=== PATIENT | male | born 1990 | race Hispanic/Latino ===

== ENCOUNTER 2016-10-07 22:15 | Emergency (ER) | payer MEDICARE, MEDICAID ==
[2016-10-07 22:20] VITALS: BP 137/69; PULSE 125; RESP 15; TEMP 99.3; O2SAT 95
--- NOTE | 2016-10-07 22:51 | ED PDOC ---
HPI: General Adult Time Seen by Provider: 10/07/16 22:49 Chief Complaint (Nursing): Seizure Chief Complaint (Provider): S/P SEIZURE History Per: Patient (26 Y/O MALE UNDOMICILED NOTED TO HAVE SHAKING IN WAITING ROOM. PATIENT APPEARED COHERENT SUBSEQUENTLY AND STATES HE HAS H/O SEIZURES. STATES HE WAS DISCHARGED FROM [facility] IN [place] TODAY AND WAS UNABLE TO FIND SPACE IN [facility].) Past Medical History Reviewed: Historical Data, Nursing Documentation, Vital Signs Vital Signs: Last Vital Signs Temp 99.3 F 10/07/16 22:19 Pulse 125 H 10/07/16 22:19 Resp 15 10/07/16 22:19 BP 137/69 10/07/16 22:19 Pulse Ox 95 10/07/16 22:52 - Medical History PMH: Anxiety, Asthma, Bipolar Disorder, Depression, Diabetes (Type I and II), HTN, Hypercholesterolemia, Hyperthyroidism, Hypothyroidism Denies: Hepatitis, HIV, Chronic Kidney Disease, Schizophrenia, Seizures, Sexually Transmitted Disease - Family History Family History: States: Unknown Family Hx - Home Medications Home Medications: Ambulatory Orders Medication Instructions Recorded risperiDONE [RisperDAL Tab] 1 mg PO DAILY #21 tab 03/30/15 risperiDONE [RisperDAL Tab] 2 mg PO HS #0 tab 03/30/15 Risperidone [Risperdal] 1 mg PO DAILY #7 tab 04/09/15 Risperidone [Risperdal] 2 mg PO ASDIR #7 tab 04/09/15 - Allergies Allergies/Adverse Reactions: Allergies Allergy/AdvReac Type Severity Reaction Status Date / Time amphetamine [From Adderall] Allergy RASH Verified 10/07/16 22:46 dextroamphetamine Allergy RASH Verified 10/07/16 22:46 [From Adderall] FISH Allergy RASH Verified 10/07/16 22:46 ibuprofen [From Motrin] Allergy RASH Verified 10/07/16 22:46 lorazepam [From Ativan] Allergy RASH Verified 10/07/16 22:46 peanut Allergy RASH Verified 10/07/16 22:46 Penicillins Allergy RASH Verified 10/07/16 22:46 shellfish derived Allergy RASH Verified 10/07/16 22:46 Review of Systems ROS Statement: Except As Marked, All Systems Reviewed And Found Negative Physical Exam - Reviewed Nursing Documentation Reviewed: Yes Vital Signs Reviewed: Yes - Physical Exam Appears: Positive for: Well, Non-toxic, No Acute Distress Head Exam: Positive for: ATRAUMATIC, NORMAL INSPECTION, NORMOCEPHALIC Skin: Positive for: Normal Color, Warm, DRY Eye Exam: Positive for: EOMI, Normal appearance, PERRL ENT: Positive for: Normal ENT Inspection Neck: Positive for: Normal, Painless ROM Cardiovascular/Chest: Positive for: Regular Rate, Rhythm Respiratory: Positive for: CNT, Normal Breath Sounds Gastrointestinal/Abdominal: Positive for: Normal Exam, Bowel Sounds, Soft Back: Positive for: Normal Inspection Extremity: Positive for: Normal ROM Neurologic/Psych: Positive for: Alert, Oriented - ECG O2 Sat by Pulse Oximetry: 95 - Progress ED Course And Treament: PATIENT WOULD LIKE HIS BAGS AND WANTS TO BE DISCHARGED OUT OF ED. Disposition - Clinical Impression Clinical Impression: Seizure disorder - Patient ED Disposition Is Patient to be Admitted: No - Disposition Disposition: Left W/O Treatment Disposition Time: 22:50 Condition: FAIR
== END 2016-10-07 23:08 | disposition left against medical advice (07) ==
LOC: H.ER 22:15
DX: R56.9 Unspecified convulsions (principal)

== ENCOUNTER 2016-10-08 04:41 | Emergency (ER) | payer MEDICARE, MEDICAID | END 2016-10-08 04:48 | disposition left against medical advice (07) | LOC: H.ER 04:41 | DX: Z02.89 Encounter for other administrative examinations (principal) ==

== ENCOUNTER 2016-10-08 08:38 | Inpatient (IN) | payer MEDICARE, MEDICAID ==
[2016-10-08] MEDS ORDERED: Naloxone 0.4 mg/ml Inj (Adult) IVP STA (09:10)
[2016-10-08] MEDS ORDERED: Sodium Chloride 0.9% 1,000 ML IV STA ×2 (09:10→11:49)
--- NOTE | 2016-10-08 09:19 | ED PDOC ---
HPI: Psych/Substance Abuse Time Seen by Provider: 10/08/16 08:44 Chief Complaint (Nursing): Altered Mental Status Chief Complaint (Provider): unresponsive ED Caveat: Acuity of Condition History Per: EMS History/Exam Limitations: clinical condition Additional Complaint(s): Vaibhav Granados is a 26 year old male, with a previous medical history of hypertension, diabetes, depression, hypercholesterolemia and asthma according previous chart, who presents to the ED via EMS after he was found unresponsive on the street. HPI is limited due to patient's inability to answer. PMD: none provided Past Medical History Reviewed: Historical Data Vital Signs: Last Vital Signs Temp 97.5 F L 10/08/16 08:44 Pulse 117 H 10/08/16 09:07 Resp 22 10/08/16 09:07 BP 135/69 10/08/16 09:07 Pulse Ox 100 10/08/16 09:07 - Medical History PMH: Anxiety, Asthma, Bipolar Disorder, Depression, Diabetes (Type I and II), HTN, Hypercholesterolemia, Hyperthyroidism, Hypothyroidism Denies: Hepatitis, HIV, Chronic Kidney Disease, Schizophrenia, Seizures, Sexually Transmitted Disease - Family History Family History: States: Unknown Family Hx - Home Medications Home Medications: Ambulatory Orders Medication Instructions Recorded risperiDONE [RisperDAL Tab] 1 mg PO DAILY #21 tab 03/30/15 risperiDONE [RisperDAL Tab] 2 mg PO HS #0 tab 03/30/15 Risperidone [Risperdal] 1 mg PO DAILY #7 tab 04/09/15 Risperidone [Risperdal] 2 mg PO ASDIR #7 tab 04/09/15 - Allergies Allergies/Adverse Reactions: Allergies Allergy/AdvReac Type Severity Reaction Status Date / Time amphetamine [From Adderall] Allergy RASH Verified 10/08/16 08:44 dextroamphetamine Allergy RASH Verified 10/08/16 08:44 [From Adderall] FISH Allergy RASH Verified 10/08/16 08:44 ibuprofen [From Motrin] Allergy RASH Verified 10/08/16 08:44 lorazepam [From Ativan] Allergy RASH Verified 10/08/16 08:44 peanut Allergy RASH Verified 10/08/16 08:44 Penicillins Allergy RASH Verified 10/08/16 08:44 shellfish derived Allergy RASH Verified 10/08/16 08:44 Review of Systems Review Of Systems: ROS cannot be obtained secondary to pt's inabilty to answer questions. Physical Exam - Reviewed Nursing Documentation Reviewed: Yes Vital Signs Reviewed: Yes - Physical Exam Head Exam: Positive for: ATRAUMATIC, NORMAL INSPECTION, NORMOCEPHALIC Eye Exam: Positive for: Other (pinpoint pupils) Cardiovascular/Chest: Positive for: Regular Rate, Rhythm Respiratory: Positive for: Accessory Muscle Use, Respiratory Distress, Other ( sonorous breathing ) Neurologic/Psych: Positive for: Other (nonresponsive to sternal rub ). Negative for: Alert, Oriented - Laboratory Results Result Diagrams: 10/08/16 09:00 10/08/16 09:00 - ECG Interpretation Of ECG: ST @ 107, no ST-T changes. O2 Sat by Pulse Oximetry: 100 - Radiology X-Ray: Read By Radiologist (In situ ETT, tip of which lies approximately 3.86 cm above husam. Poor inspiration with low lung volumes, crowded bronchovascular markings and mild bibasilar atelectasis right greater than left. There may be right lower lobe atelectasis and or infiltrate and right- sided effusion. Central pulmonary vasculature is slightly increased as well likely due to the above-mentioned low lung volume technical factor.) - Critical Care Total Time (In Min): 45 Medical Decision Making Medical Decision Making: Initial Plan: * CT head w/o contrast * EKG * labs * acetaminophen * alcohol serum * urine drug screen * salicylate * urine dipstick * PTT * PT * CXR * maxifloxacin IV 400 mg * clindamycin 600 mg IV * IV NS 1,000 ml at 1,000 ml/hr * narcan 2 mg * accu-check * ventilator setting * urinalysis * reevaluation 08:44 patient arrived via EMS after being found unresponsive. Patient is unresponsive to sternal rub with pinpoint pupils and sonorous breathing. 08:46 0.4 narcan administered Oxygen saturation 84 % 08:50 1.2 narcan administered vomitus material while suctioning noted 08:52 accu-check 224 08:55 1.2 narcan administered 08:56 Intubation attempt successful breath sounds bilaterally Vitals: Oxygen: 96 % Heart rate: 132 bpm blood pressure: 109/39 09:02 Vitals: Oxygen: 100 % Heart rate: 126 bpm blood pressure: 135/69 09:41 Patient will be started on clindamycin and avelox for prophylactic aspiration. 10:11 CXR FINDINGS: LUNGS: In situ ETT, tip of which lies approximately 3.86 cm above husam. Poor inspiration with low lung volumes, crowded bronchovascular markings and mild bibasilar atelectasis right greater than left. There may be right lower lobe atelectasis and or infiltrate and right-sided effusion. Central pulmonary vasculature is slightly increased as well likely due to the above-mentioned low lung volume technical factor. PLEURA: No significant pleural effusion identified, no pneumothorax apparent. CARDIOVASCULAR: Normal. OSSEOUS STRUCTURES: No significant abnormalities. VISUALIZED UPPER ABDOMEN: Normal. OTHER FINDINGS: None. IMPRESSION: In situ ETT, tip of which lies approximately 3.86 cm above husam. Poor inspiration with low lung volumes, crowded bronchovascular markings and mild bibasilar atelectasis right greater than left. There may be right lower lobe atelectasis and or infiltrate and right-sided effusion. Central pulmonary vasculature is slightly increased as well likely due to the above-mentioned low lung volume technical factor. 11:18 CT head FINDINGS: HEMORRHAGE: No acute parenchymal, subarachnoid or extra-axial hemorrhage. BRAIN: No evidence of large acute infarct. No obvious parenchymal nor extra-axial mass or collection seen on this noncontrast study. There has been interval development of mild generalized volume loss compared the prior exam VENTRICLES: No evidence of obstructive hydrocephalus CALVARIUM: There are no acute calvarial fractures however there does appear to be mild right temporoparietal scalp swelling/ contusion old changes. . PARANASAL SINUSES: Mild mucosal thickening noted within the ethmoid air complex and right chamber frontal sinus. MASTOID AIR CELLS: Unremarkable as visualized. No inflammatory changes. OTHER FINDINGS: None. IMPRESSION: No acute intracranial hemorrhage. Interval development mild generalized volume loss. Mild right the temporoparietal scalp contusion/soft tissue swelling. 11:25 Discussed with associate attorney, Dr. Martini, for plan of ICU admission. There is an agreement for plan of admission. Scribe Attestation: Documented by Beverley Bunch, acting as a scribe for Beverley Nava MD. Provider Scribe Attestation: All medical record entries made by the Scribe were at my direction and personally dictated by me. I have reviewed the chart and agree that the record accurately reflects my personal performance of the history, physical exam, medical decision making, and the department course for this patient. I have also personally directed, reviewed, and agree with the discharge instructions and disposition. Procedures - Intubation Intubation Method: orotracheal Tube Size (cm): 7.5 Breath Sounds after Intubation: equal Intubation Complications: vomited, apparent aspiration Post Intubation Xray: Yes Disposition - Clinical Impression Clinical Impression: Opioid overdose - Patient ED Disposition Is Patient to be Admitted: Yes - Disposition Disposition Time: 11:21 Condition: CRITICAL - Pt Status Changed To: Hospital Disposition Of: Inpatient - Admit Certification Admit to Inpatient:: After my assessment, the patient will require hospitalization for at least two midnights. This is because of the severity of symptoms shown, intensity of services needed, and/or the medical risk in this patient being treated as an outpatient. - POA Present On Arrival: None
[2016-10-08 09:26] LABS: BASO % 0.2 % (0.0-2.0); EOS # 0.2 K/uL (0.0-0.7); EOS % 2.5 % (0.0-4.0); HEMATOCRIT 40.2 % (35.0-51.0); LYMPH # 1.7 K/uL (1.0-4.3); LYMPH % 25.7 % (20.0-40.0); MEAN CELL VOLUME 85.2 fl (80.0-94.0); MEAN CORPUSCULAR HEMOGLOBIN 28.5 pg (27.0-31.0); MEAN CORPUSCULAR HGB CONC 33.5 g/dL (33.0-37.0); MEAN PLATELET VOLUME 9.6 fl (7.2-11.7); MONO # 0.7 K/uL (0.0-0.8); MONO % 10.4 % (0.0-10.0); NEUT # 4.1 K/uL (1.8-7.0); NEUT % 61.2 % (50.0-75.0); NRBC % 0.1 % (0.0-0.0); RED CELL DISTRIBUTION WIDTH 13.8 % (11.5-14.5); WHITE BLOOD COUNT 6.7 K/uL (4.8-10.8)
[2016-10-08 09:38] LABS: ALB/GLOB RATIO 1.2 (1.0-2.1); ALCOHOL SERUM < 10 mg/dl (0-10); ALKALINE PHOSPHATASE 65 U/L (38-126); ALT/SGPT 27 U/L (21-72); AST/SGOT 21 U/L (17-59); BILIRUBIN,TOTAL 0.2 mg/dl (0.2-1.3); BLOOD UREA NITROGEN 14 mg/dl (9-20); CALCIUM 8.6 mg/dL (8.4-10.2); CARBON DIOXIDE 21 mmol/L (22-30); CHLORIDE 103 mmol/L (98-107); GFR AFRICAN-AMERICAN > 60; GLUCOSE,RANDOM 189 mg/dL (75-110); POTASSIUM 3.5 MMOL/L (3.6-5.0); SODIUM 141 mmol/l (132-148); TOTAL PROTEIN 7.8 G/DL (6.3-8.2)
[2016-10-08] MEDS ORDERED: Clindamycin 600 MG in Sodium Chloride 0.9% 100 ML IVPB STA (09:41)
[2016-10-08] MEDS ORDERED: levoFLOXacin 750 mg in D5W 750 MG/150 ML BAG IVPB STA (09:41)
[2016-10-08 09:43] LABS: PARTIAL THROMBOPLASTIN TIME 31.2 Seconds (25.6-37.1)
--- NOTE | 2016-10-08 10:12 | RAD ---
HISTORY: Post-intubation COMPARISON: Comparison chest 03/21/2015 FINDINGS: LUNGS: In situ ETT, tip of which lies approximately 3.86 cm above husam. Poor inspiration with low lung volumes, crowded bronchovascular markings and mild bibasilar atelectasis right greater than left. There may be right lower lobe atelectasis and or infiltrate and right-sided effusion. Central pulmonary vasculature is slightly increased as well likely due to the above-mentioned low lung volume technical factor. PLEURA: No significant pleural effusion identified, no pneumothorax apparent. CARDIOVASCULAR: Normal. OSSEOUS STRUCTURES: No significant abnormalities. VISUALIZED UPPER ABDOMEN: Normal. OTHER FINDINGS: None. IMPRESSION: In situ ETT, tip of which lies approximately 3.86 cm above husam. Poor inspiration with low lung volumes, crowded bronchovascular markings and mild bibasilar atelectasis right greater than left. There may be right lower lobe atelectasis and or infiltrate and right-sided effusion. Central pulmonary vasculature is slightly increased as well likely due to the above-mentioned low lung volume technical factor.
--- NOTE | 2016-10-08 11:19 | CT ---
PROCEDURE: CT HEAD WITHOUT CONTRAST. HISTORY: Unresponsive COMPARISON: Comparison made with prior CT scan brain 06/20/2014 . TECHNIQUE: Axial computed tomography images were obtained through the head/brain without intravenous contrast. Radiation dose: Total exam DLP = 2558.14 mGy-cm. This CT exam was performed using one or more of the following dose reduction techniques: Automated exposure control, adjustment of the mA and/or kV according to patient size, and/or use of iterative reconstruction technique. FINDINGS: HEMORRHAGE: No acute parenchymal, subarachnoid or extra-axial hemorrhage. BRAIN: No evidence of large acute infarct. No obvious parenchymal nor extra-axial mass or collection seen on this noncontrast study. There has been interval development of mild generalized volume loss compared the prior exam VENTRICLES: No evidence of obstructive hydrocephalus CALVARIUM: There are no acute calvarial fractures however there does appear to be mild right temporoparietal scalp swelling/ contusion old changes. . PARANASAL SINUSES: Mild mucosal thickening noted within the ethmoid air complex and right chamber frontal sinus. MASTOID AIR CELLS: Unremarkable as visualized. No inflammatory changes. OTHER FINDINGS: None. IMPRESSION: No acute intracranial hemorrhage. Interval development mild generalized volume loss. Mild right the temporoparietal scalp contusion/soft tissue swelling.
[2016-10-08 12:05] LABS: RBC URINE 2 /hpf (0-3); URINE BILIRUBIN NEGATIVE (NEGATIVE); URINE BLOOD NEGATIVE (NEGATIVE); URINE COLOR YELLOW (YELLOW); URINE GLUCOSE (UA) NEG (Normal); URINE KETONE TRACE mg/dL (NEGATIVE); URINE LEUKOCYTE ESTERASE NEG Leu/uL (Negative); URINE PROTEIN 100 mg/dL (NEGATIVE); URINE UROBILINOGEN 0.2-1.0 mg/dL (0.2-1.0); WBC URINE 2 /hpf (0-5)
[2016-10-08] MEDS ORDERED: Pneumococcal 23-Valent Vaccine IM ONE (13:38)
--- NOTE | 2016-10-08 13:53 | CARD ---
APPROVED REPORT EKG Measurement Heart [id number] <Conclusion> Sinus tachycardia Otherwise normal ECG
--- NOTE | 2016-10-08 13:56 | CP.PCM.CON ---
History of Present Illness - History of Present Illness History of Present Illness: 26yo M. PMHx Anxiety, Asthma, Bipolar Disorder, Depression, Diabetes, HTN, Hypercholesterolemia, Hyperthyroidism, Hypothyroidism, Schizophrenia, drug abuse (THC, PCP, benzo). p/w acute respiratory failure from drug overdose, intubated in ED. Review of Systems - Review of Systems Systems not reviewed;Unavailable: Altered Mental Status Past Patient History - Infectious Disease Hx of Infectious Diseases: None - Tetanus Immunizations Tetanus Immunization: Unknown - Past Medical History & Family History Past Medical History?: Yes - Past Social History Smoking Status: Unknown If Ever Smoked - CARDIAC Hx Hypercholesterolemia: Yes Hx Hypertension: Yes - PULMONARY Hx Asthma: Yes - NEUROLOGICAL Hx Seizures: No - HEENT Hx Deafness: Yes Other/Comment: Hx nearsighted - RENAL Hx Chronic Kidney Disease: No - ENDOCRINE/METABOLIC Hx Hyperthyroidism: Yes Hx Hypothyroidism: Yes - HEMATOLOGICAL/ONCOLOGICAL Hx Human Immunodeficiency Virus (HIV): No - INTEGUMENTARY Hx Dermatological Problems: No - MUSCULOSKELETAL/RHEUMATOLOGICAL Hx Musculoskeletal Disorders: No Hx Falls: No - GASTROINTESTINAL Hx Gastrointestinal Disorders: No - GENITOURINARY/GYNECOLOGICAL Hx Sexually Transmitted Disorders: No - PSYCHIATRIC Hx Anxiety: Yes Hx Bipolar Disorder: Yes Hx Depression: Yes Hx Schizophrenia: No Hx Substance Use: Yes - SURGICAL HISTORY Hx Surgeries: No - ANESTHESIA Hx Anesthesia: No Meds Allergies/Adverse Reactions: Allergies Allergy/AdvReac Type Severity Reaction Status Date / Time amphetamine [From Adderall] Allergy RASH Verified 10/08/16 08:44 dextroamphetamine Allergy RASH Verified 10/08/16 08:44 [From Adderall] FISH Allergy RASH Verified 10/08/16 08:44 ibuprofen [From Motrin] Allergy RASH Verified 10/08/16 08:44 lorazepam [From Ativan] Allergy RASH Verified 10/08/16 08:44 peanut Allergy RASH Verified 10/08/16 08:44 Penicillins Allergy RASH Verified 10/08/16 08:44 shellfish derived Allergy RASH Verified 10/08/16 08:44 - Medications Medications: Current Medications Enoxaparin Sodium (Lovenox) 40 mg SC DAILY AGUS PRN Reason: Protocol Sodium Chloride (Sodium Chloride 0.9%) 1,000 mls @ 125 mls/hr IV .Q8H STA Stop: 10/08/16 19:48 Physical Exam - Head Exam Head Exam: ATRAUMATIC, NORMAL INSPECTION, NORMOCEPHALIC - Eye Exam Eye Exam: EOMI, Normal appearance, PERRL - Respiratory Exam Respiratory Exam: Decreased Breath Sounds, NORMAL BREATHING PATTERN - Cardiovascular Exam Cardiovascular Exam: REGULAR RHYTHM - GI/Abdominal Exam GI & Abdominal Exam: Normal Bowel Sounds, Soft. absent: Tenderness - Neurological Exam Neurological exam: Altered - Psychiatric Exam Additional comments: obtunded Results - Vital Signs Recent Vital Signs: Last Vital Signs Temp 97.7 F 10/08/16 12:50 Pulse 102 H 10/08/16 12:50 Resp 25 H 10/08/16 13:12 BP 124/70 10/08/16 12:50 Pulse Ox 100 10/08/16 12:50 - Labs Result Diagrams: 10/08/16 09:00 10/08/16 09:00 Assessment & Plan (1) Drug intoxication Assessment and Plan: 26yo M. PMHx Anxiety, Asthma, Bipolar Disorder, Depression, Diabetes, HTN, Hypercholesterolemia, Hyperthyroidism, Hypothyroidism, Schizophrenia, drug abuse (THC, PCP, benzo). p/w acute respiratory failure from drug overdose, intubated in ED. Neuro: obtunded from benzodiazepine overdose, narcan reversal did not work, urine opioid negative. Pulm: acute respiratory failure secondary to opioid overdose. now on PRVC. CV: hemodynamically stable Hem: no acute issues Renal: maintenance fluid, NS@125 Endo: hyperthyroidism, check TSH/Free T4. ?Diabetes, check A1C. GI: NPO ID: empiric coverage for aspiration, clindamycin. DVT proph - lovenox GI proph - not currently indicated corea for strict I/O's during acute illness Code status - full code Critical Care Time spent 35 minutes The documented time is cumulative and includes review of patient data/exams/labs /chart review and examination of the patient on rounds and throughout the day; time is exclusive of any procedures or teaching time. Status: Acute
[2016-10-08] MEDS: Clindamycin 600 MG in Sodium Chloride 0.9% 100 ML IVPB SCH (16:14)
[2016-10-08] MEDS: Insulin Lispro (humaLOG) 100 Units/ml Inj SC SCH ×2 (16:15→21:16)
[2016-10-08] MEDS: Enoxaparin 40 mg Syringe SC SCH (16:15)
[2016-10-08] MEDS ORDERED: Albuterol-Ipratrop 3 mg / 0.5 (3 ml) UD INH PRN (18:35)
[2016-10-08] MEDS: guaiFENesin 600 mg ER Tab PO SCH (21:56)
[2016-10-09] MEDS: Clindamycin 600 MG in Sodium Chloride 0.9% 100 ML IVPB SCH ×3 (00:18→17:35)
[2016-10-09 05:15] LABS: ABG ALLEN TEST YES; ARTERIAL BLOOD GAS HCO3 27.5 mmol/L (21-28); ARTERIAL BLOOD GAS MODE CPAP+PS; ARTERIAL BLOOD GAS O2 CAPACITY 18.5 mL/dL (16-24); ARTERIAL BLOOD GAS O2 CONTENT 18.4 ML/dL (15-23); ARTERIAL BLOOD GAS PH 7.44 (7.35-7.45); ARTERIAL BLOOD GAS PO2 113 mm/Hg (80-100); ATERIAL BLOOD GAS PEEP 8; CARBOXYHEMOGLOBIN 1.9 % (0.5-1.5); HHB 0.4 % (0.0-5.0); METHEMOGLOBIN 1.7 % (0.0-3.0)
[2016-10-09] MEDS: Insulin Lispro (humaLOG) 100 Units/ml Inj SC SCH ×4 (05:19→21:36)
[2016-10-09 07:13] LABS: ALB/GLOB RATIO 1.1 (1.0-2.1); ALKALINE PHOSPHATASE 62 U/L (38-126); ALT/SGPT 27 U/L (21-72); AST/SGOT 19 U/L (17-59); BILIRUBIN,TOTAL 0.6 mg/dl (0.2-1.3); BLOOD UREA NITROGEN 7 mg/dl (9-20); CALCIUM 8.2 mg/dL (8.4-10.2); CARBON DIOXIDE 24 mmol/L (22-30); CHLORIDE 104 mmol/L (98-107); GFR AFRICAN-AMERICAN > 60; GLUCOSE,RANDOM 99 mg/dL (75-110); POTASSIUM 4.1 MMOL/L (3.6-5.0); SODIUM 139 mmol/l (132-148); TOTAL PROTEIN 7.1 G/DL (6.3-8.2)
[2016-10-09 07:16] LABS: HEMATOCRIT 38.6 % (35.0-51.0); MEAN CELL VOLUME 85.7 fl (80.0-94.0); MEAN CORPUSCULAR HEMOGLOBIN 28.2 pg (27.0-31.0); MEAN CORPUSCULAR HGB CONC 32.9 g/dL (33.0-37.0); RED CELL DISTRIBUTION WIDTH 13.7 % (11.5-14.5); WHITE BLOOD COUNT 12.2 K/uL (4.8-10.8)
[2016-10-09] MEDS: guaiFENesin 600 mg ER Tab PO SCH ×2 (10:30→20:15)
[2016-10-09] MEDS: Enoxaparin 40 mg Syringe SC SCH (10:30)
--- NOTE | 2016-10-09 10:44 | RAD ---
HISTORY: repeat x-ray COMPARISON: Comparison made with prior chest radiograph 10/09/2016 at 07:38 hours FINDINGS: LUNGS: Interval removal ETT Poor inspiration with low lung volumes, crowded bronchovascular markings and mild bibasilar atelectasis right greater than left. The possibility of right lower lobe infiltrate to be excluded. Persistent slight increased central pulmonary vasculature ; underlying mild pulmonary edema not excluded Questionable small right-sided effusion PLEURA: As above. No pneumothorax apparent. CARDIOVASCULAR: Normal. OSSEOUS STRUCTURES: No significant abnormalities. VISUALIZED UPPER ABDOMEN: Normal. OTHER FINDINGS: None. IMPRESSION: Poor inspiration with low lung volumes, crowded bronchovascular markings and mild bibasilar atelectasis right greater than left. The possibility of right lower lobe infiltrate to be excluded. Persistent slight increased central pulmonary vasculature ; underlying mild pulmonary edema not excluded. Questionable small right-sided effusion
--- NOTE | 2016-10-09 11:04 | RAD ---
HISTORY: on vent COMPARISON: Comparison made with prior chest radiograph 10/08/2016 at 9:56 a.m. FINDINGS: LUNGS: In situ ETT, tip of which lies in the 3.34 cm above husam. . Mild central pulmonary vascular congestive changes with bilateral lower lobe atelectasis and or infiltrates. Suspect right-sided effusion. PLEURA: No significant pleural effusion identified, no pneumothorax apparent. CARDIOVASCULAR: Normal. OSSEOUS STRUCTURES: No significant abnormalities. VISUALIZED UPPER ABDOMEN: Normal. OTHER FINDINGS: None. IMPRESSION: In situ ETT as above. Mild central pulmonary vascular congestive changes with bilateral lower lobe atelectasis and or infiltrates. Suspect right-sided effusion.
--- NOTE | 2016-10-09 11:07 | CP.CCUPN ---
CCU Subjective - Physician Review Events Since Last Encounter (Free Text): 10/09/16 11:05 patient was awake and alert and self-extubated this morning. He is breathing well on ventimask currently. CCU Objective - Vital Signs / Intake & Output Vital Signs (Last 4 hours): Vital Signs Temp Pulse Resp BP Pulse Ox 10/09/16 08:00 99.6 F 104 H 22 122/58 L 103 H Intake and Output (Last 8hrs): Intake & Output 10/08/16 10/09/16 10/09/16 22:59 06:59 14:59 Intake Total 1025 975 Output Total 500 1300 Balance 525 -325 Intake: IV 925 875 Intake, Piggyback 100 100 Output: Urine 500 1300 Urethral (Corea) 500 1300 - Physical Exam Head: Positive for: Atraumatic, Normocephalic Pupils: Positive for: PERRL Extroacular Muscles: Positive for: EOMI Mouth: Positive for: Moist Mucous Membranes Neck: Positive for: Normal Range of Motion Respiratory/Chest: Positive for: Rhonchi Cardiovascular: Positive for: Regular Rate and Rhythm, Normal S1, S2 Abdomen: Positive for: Normal Bowel Sounds. Negative for: Tenderness, Distention Neurological: Positive for: GCS=15, CN II-XII Intact Psychiatric: Positive for: Alert - Medications Active Medications: Active Medications Generic Name Dose Route Start Last Admin Trade Name Freq PRN Reason Stop Dose Admin Albuterol/Ipratropium 3 ml 10/08/16 18:35 Duoneb 3 Mg/0.5 Mg (3 Ml) Ud INH RQ4 PRN Shortness of Breath Enoxaparin Sodium 40 mg 10/08/16 14:00 10/09/16 10:30 Lovenox SC 40 mg DAILY AGUS Administration Protocol Guaifenesin 1,200 mg 10/08/16 21:00 10/09/16 10:30 Mucinex La PO Not Given Q12 AGUS Haloperidol Lactate 2 mg 10/09/16 00:22 10/09/16 00:34 Haldol IVP 2 mg Q6 PRN Administration Agitation Clindamycin Phosphate 600 mg/ 104 mls @ 104 mls/hr 10/08/16 17:00 10/09/16 10 :28 Sodium Chloride IVPB 104 mls/hr Q8 AGUS Administration Insulin Human Lispro 0 units 10/08/16 15:30 10/09/16 09:30 Humalog SC Not Given Q6H [facility] Protocol - Patient Studies Lab Studies: Lab Studies 10/09/16 10/09/16 10/09/16 Range/Units 05:30 05:30 05:08 WBC 12.2 H D (4.8-10.8) K/uL RBC 4.50 (4.40-5.90) Mil/uL Hgb 12.7 (12.0-18.0) g/dL Hct 38.6 (35.0-51.0) % MCV 85.7 (80.0-94.0) fl MCH 28.2 (27.0-31.0) pg MCHC 32.9 L (33.0-37.0) g/dL RDW 13.7 (11.5-14.5) % Plt Count 160 (130-400) K/uL pCO2 41 (35-45) mm/Hg pO2 113 H (80-100) mm/Hg HCO3 27.5 (21-28) mmol/L ABG pH 7.44 (7.35-7.45) ABG Total CO2 29.1 H (22-28) mmol/L ABG O2 Saturation 99.6 H (95-98) % ABG O2 Content 18.4 (15-23) ML/dL ABG Base Excess 3.3 H (-2.0-3.0) mmol/L ABG Hemoglobin 13.5 (11.7-17.4) g/dL ABG Carboxyhemoglobin 1.9 H (0.5-1.5) % POC ABG HHb (Measured) 0.4 (0.0-5.0) % ABG Methemoglobin 1.7 (0.0-3.0) % ABG O2 Capacity 18.5 (16-24) mL/dL Darrian Test Yes A-a O2 Difference 121.0 mm/Hg Hgb O2 Saturation 96.0 (95.0-98.0) % Vent Mode Cpap+ps FiO2 40.0 % PEEP 8 Pressure Support 10 Sodium 139 (132-148) mmol/l Potassium 4.1 (3.6-5.0) MMOL/L Chloride 104 (98-107) mmol/L Carbon Dioxide 24 (22-30) mmol/L Anion Gap 14 (10-20) BUN 7 L (9-20) mg/dl Creatinine 0.7 L (0.8-1.5) mg/dL Est GFR ( Amer) > 60 Est GFR (Non-Af Amer) > 60 POC Glucose (mg/dL) (65-110) mg/dL Random Glucose 99 (75-110) mg/dL Calcium 8.2 L (8.4-10.2) mg/dL Total Bilirubin 0.6 (0.2-1.3) mg/dl AST 19 (17-59) U/L ALT 27 (21-72) U/L Alkaline Phosphatase 62 (38-126) U/L Total Protein 7.1 (6.3-8.2) G/DL Albumin 3.6 (3.5-5.0) g/dL Globulin 3.4 (2.2-3.9) gm/dL Albumin/Globulin Ratio 1.1 (1.0-2.1) 10/09/16 10/08/16 10/08/16 Range/Units 04:32 20:58 16:09 WBC (4.8-10.8) K/uL RBC (4.40-5.90) Mil/uL Hgb (12.0-18.0) g/dL Hct (35.0-51.0) % MCV (80.0-94.0) fl MCH (27.0-31.0) pg MCHC (33.0-37.0) g/dL RDW (11.5-14.5) % Plt Count (130-400) K/uL pCO2 (35-45) mm/Hg pO2 (80-100) mm/Hg HCO3 (21-28) mmol/L ABG pH (7.35-7.45) ABG Total CO2 (22-28) mmol/L ABG O2 Saturation (95-98) % ABG O2 Content (15-23) ML/dL ABG Base Excess (-2.0-3.0) mmol/L ABG Hemoglobin (11.7-17.4) g/dL ABG Carboxyhemoglobin (0.5-1.5) % POC ABG HHb (Measured) (0.0-5.0) % ABG Methemoglobin (0.0-3.0) % ABG O2 Capacity (16-24) mL/dL Darrian Test A-a O2 Difference mm/Hg Hgb O2 Saturation (95.0-98.0) % Vent Mode FiO2 % PEEP Pressure Support Sodium (132-148) mmol/l Potassium (3.6-5.0) MMOL/L Chloride (98-107) mmol/L Carbon Dioxide (22-30) mmol/L Anion Gap (10-20) BUN (9-20) mg/dl Creatinine (0.8-1.5) mg/dL Est GFR ( Amer) Est GFR (Non-Af Amer) POC Glucose (mg/dL) 94 96 102 (65-110) mg/dL Random Glucose (75-110) mg/dL Calcium (8.4-10.2) mg/dL Total Bilirubin (0.2-1.3) mg/dl AST (17-59) U/L ALT (21-72) U/L Alkaline Phosphatase (38-126) U/L Total Protein (6.3-8.2) G/DL Albumin (3.5-5.0) g/dL Globulin (2.2-3.9) gm/dL Albumin/Globulin Ratio (1.0-2.1) Laboratory Results - last 24 hr 10/08/16 10/08/16 10/09/16 16:09 20:58 04:32 WBC RBC Hgb Hct MCV MCH MCHC RDW Plt Count pCO2 pO2 HCO3 ABG pH ABG Total CO2 ABG O2 Saturation ABG O2 Content ABG Base Excess ABG Hemoglobin ABG Carboxyhemoglobin POC ABG HHb (Measured) ABG Methemoglobin ABG O2 Capacity Darrian Test A-a O2 Difference Hgb O2 Saturation Vent Mode FiO2 PEEP Pressure Support Sodium Potassium Chloride Carbon Dioxide Anion Gap BUN Creatinine Est GFR ( Amer) Est GFR (Non-Af Amer) POC Glucose (mg/dL) 102 96 94 Random Glucose Calcium Total Bilirubin AST ALT Alkaline Phosphatase Total Protein Albumin Globulin Albumin/Globulin Ratio 10/09/16 10/09/16 10/09/16 05:08 05:30 05:30 WBC 12.2 H D RBC 4.50 Hgb 12.7 Hct 38.6 MCV 85.7 MCH 28.2 MCHC 32.9 L RDW 13.7 Plt Count 160 pCO2 41 pO2 113 H HCO3 27.5 ABG pH 7.44 ABG Total CO2 29.1 H ABG O2 Saturation 99.6 H ABG O2 Content 18.4 ABG Base Excess 3.3 H ABG Hemoglobin 13.5 ABG Carboxyhemoglobin 1.9 H POC ABG HHb (Measured) 0.4 ABG Methemoglobin 1.7 ABG O2 Capacity 18.5 Darrian Test Yes A-a O2 Difference 121.0 Hgb O2 Saturation 96.0 Vent Mode Cpap+ps FiO2 40.0 PEEP 8 Pressure Support 10 Sodium 139 Potassium 4.1 Chloride 104 Carbon Dioxide 24 Anion Gap 14 BUN 7 L Creatinine 0.7 L Est GFR ( Amer) > 60 Est GFR (Non-Af Amer) > 60 POC Glucose (mg/dL) Random Glucose 99 Calcium 8.2 L Total Bilirubin 0.6 AST 19 ALT 27 Alkaline Phosphatase 62 Total Protein 7.1 Albumin 3.6 Globulin 3.4 Albumin/Globulin Ratio 1.1 Fingerstick Blood Sugar Results: 95 Review of Systems - Review of Systems All systems: reviewed and no additional remarkable complaints except - EENT Nose/Mouth/Throat: Hoarsness Assessment/Plan (1) Drug intoxication Assessment and plan: 26yo M. PMHx Anxiety, Asthma, Bipolar Disorder, Depression, Diabetes, HTN, Hypercholesterolemia, Hypothyroidism, Schizophrenia, drug abuse (THC, PCP, benzo ). p/w acute respiratory failure from drug overdose, intubated in ED. Neuro: obtunded from benzodiazepine overdose, narcan reversal did not work, urine opioid negative. Pulm: acute respiratory failure resolved. Self-extubated, breathing well on VM. Duonebs q6h, guaifenessin bid for aspiration pneumonia. CV: hemodynamically stable Hem: no acute issues Renal: maintenance fluid, NS@125 Endo: hypothyroidism, will start levothyroxine. ?Diabetes, awating A1C. GI: NPO, s/s eval. ID: sepsis for aspiration pneumonia, clindamycin. DVT proph - lovenox GI proph - not currently indicated corea for strict I/O's during acute illness Code status - full code Critical Care Time spent 35 minutes The documented time is cumulative and includes review of patient data/exams/labs /chart review and examination of the patient on rounds and throughout the day; time is exclusive of any procedures or teaching time. Current Visit: No Status: Acute
[2016-10-09] MEDS ORDERED: Sodium Chloride 0.9% 1,000 ML IV SCH (19:30)
--- NOTE | 2016-10-09 21:15 | HP ---
CHIEF COMPLAINT: Found unresponsive. HISTORY OF PRESENT ILLNESS: This is a 26-year-old male with known case of anxiety, bipolar disorder, bronchial asthma, hypertension, diabetes, thyroid disorder and drug abuse, who was found unresponsiv e and was brought to Emergency Room and was found in respiratory distress and was intubated and was p laced on ventilator and was admitted to intensive care unit. The patient currently remains in intens whit care unit on mechanical ventilation and is not able to provide informative history or review of s ystems. PAST MEDICAL HISTORY: Significant for hypertension, diabetes mellitus, thyroid disorder, bipolar dis order, asthma, anxiety, schizophrenia and substance abuse. PAST SURGICAL HISTORY: Nonremarkable. PERSONAL HISTORY: The patient has history of substance abuse. MEDICATIONS: The patient is not on any medications. ALLERGIES: THE PATIENT IS ALLERGIC TO AMPHETAMINES, FISH, IBUPROFEN. FAMILY HISTORY: Noncontributory. PHYSICAL EXAMINATION: GENERAL: Well-built, overweight 26-year-old male, orally intubated on mechanical ventilation. Brianna ating current vent setting without any distress. VITAL SIGNS: Temperature afebrile, pulse 100, respirations 17, blood pressure 107/67, saturation 96% . HEENT: Pupils reacting to light. HEART: S1, S2 normal, regular. NECK: No JVD, no thyromegaly, no lymphadenopathy. HEART: S1, S2 normal, regular. No significant murmur, gallop or rub is heard. LUNGS: Shows good bilateral air exchange. No rales or rhonchi, some transmitted sounds. ABDOMEN: Soft, nontender, no organomegaly, no fluid. Bowel sounds are plus. EXTREMITIES: No edema, no calf swelling, no tenderness, no acute ischemia. CENTRAL NERVOUS SYSTEM: The patient is not able to be examined as currently the patient is on mechanical ventilation and not conversant. DIAGNOSTIC DATA: Available diagnostic data reviewed. WBC 12.2, hemoglobin 12.7, hematocrit 38.6, pl atelet 160. A pO2 of 41, pCO2 of 113, bicarbonate 27.5, pH 7.44, saturation is 99.6. Sodium 139, pot assium 4.1, chloride 104, bicarb 24, BUN 7, creatinine 0.7. SMA-12 is unremarkable. Toxicology was positive for benzodiazepines. Chest x-ray was clear. ET tube in acceptable position. CAT scan of h ead did not reveal any acute MATHEMATICIAN event. Cardiac monitoring does not reveal significant arrhythmias. ADMITTING IMPRESSION: Altered mental status, drug overdose, history of hypertension, diabetes, thyro id disorder, bipolar disorder, schizophrenia. PLAN: As ordered. Case and plan discussed with ICU. Kiko Colmenares MD cc: [id number] TT: 10/09/2016 21:15:13 ln
[2016-10-10] MEDS: Clindamycin 600 MG in Sodium Chloride 0.9% 100 ML IVPB SCH ×3 (01:00→16:01)
[2016-10-10] MEDS: Insulin Lispro (humaLOG) 100 Units/ml Inj SC SCH ×4 (04:35→22:00)
[2016-10-10 05:01] LABS: HEMATOCRIT 38.6 % (35.0-51.0); MEAN CELL VOLUME 84.8 fl (80.0-94.0); MEAN CORPUSCULAR HEMOGLOBIN 28.3 pg (27.0-31.0); MEAN CORPUSCULAR HGB CONC 33.4 g/dL (33.0-37.0); WHITE BLOOD COUNT 9.5 K/uL (4.8-10.8)
[2016-10-10 05:11] LABS: ALKALINE PHOSPHATASE 64 U/L (38-126); ALT/SGPT 33 U/L (21-72); AST/SGOT 17 U/L (17-59); BILIRUBIN,TOTAL 0.4 mg/dl (0.2-1.3); BLOOD UREA NITROGEN 10 mg/dl (9-20); CARBON DIOXIDE 24 mmol/L (22-30); CHLORIDE 105 mmol/L (98-107); GFR AFRICAN-AMERICAN > 60; GLUCOSE,RANDOM 98 mg/dL (75-110); POTASSIUM 4.2 MMOL/L (3.6-5.0); SODIUM 139 mmol/l (132-148); TOTAL PROTEIN 7.7 G/DL (6.3-8.2)
--- NOTE | 2016-10-10 07:15 | CP.CCUPN ---
CCU Subjective - Physician Review Events Since Last Encounter (Free Text): 10/10/16 15:30 The Patient was seen and examined at the bedside with the ICU team. Management issues were discussed and formulated. 26 Y/O M. PMHx HTN, Hypercholesterolemia, Anxiety, Asthma, Bipolar Disorder, Depression, Diabetes, Hypothyroidism, Schizophrenia, drug abuse (THC, PCP, benzo ). p/w acute respiratory failure from drug overdose, intubated in ED. Acute respiratory failure self extubated, remains in ICU to monitor respiratory status closely More awake, and interactive today Comfortable, NAD Saturating well on nasal cannula Tolerating PO diet. AFebrile Patient stable for transfe out of ICU On IV Antibiotics with Clindamycin CCU Objective - Vital Signs / Intake & Output Vital Signs (Last 4 hours): Vital Signs Temp Pulse Resp BP Pulse Ox 10/10/16 06:00 99 H 27 H 93/60 L 95 10/10/16 04:00 98.8 F 95 H 18 101/61 97 Intake and Output (Last 8hrs): Intake & Output 10/09/16 10/10/16 10/10/16 22:59 06:59 14:59 Intake Total 465 865 Output Total 1950 1550 Balance -1485 -685 Weight 337 lb Intake: IV 225 525 Intake, Piggyback 100 Oral 240 240 Output: Urine 1950 1550 Urine, Voided 1950 1550 Other: # Voids Urine, Voided 1 - Physical Exam Head: Positive for: Atraumatic, Normocephalic Pupils: Positive for: PERRL Extroacular Muscles: Positive for: EOMI Mouth: Positive for: Moist Mucous Membranes Neck: Positive for: Normal Range of Motion Respiratory/Chest: Positive for: Rhonchi Cardiovascular: Positive for: Regular Rate and Rhythm, Normal S1, S2 Abdomen: Positive for: Normal Bowel Sounds. Negative for: Tenderness, Distention Neurological: Positive for: GCS=15, CN II-XII Intact Psychiatric: Positive for: Alert, Oriented x 3 - Medications Active Medications: Active Medications Generic Name Dose Route Start Last Admin Trade Name Freq PRN Reason Stop Dose Admin Albuterol/Ipratropium 3 ml 10/08/16 18:35 Duoneb 3 Mg/0.5 Mg (3 Ml) Ud INH RQ4 PRN Shortness of Breath Enoxaparin Sodium 40 mg 10/08/16 14:00 10/09/16 10:30 Lovenox SC 40 mg DAILY AGUS Administration Protocol Guaifenesin 1,200 mg 10/08/16 21:00 10/09/16 20:15 Mucinex La PO 1,200 mg Q12 AGUS Administration Haloperidol Lactate 2 mg 10/09/16 00:22 10/09/16 00:34 Haldol IVP 2 mg Q6 PRN Administration Agitation Clindamycin Phosphate 600 mg/ 104 mls @ 104 mls/hr 10/08/16 17:00 10/10/16 01 :00 Sodium Chloride IVPB 104 mls/hr Q8 AGUS Administration Sodium Chloride 1,000 mls @ 75 mls/hr 10/09/16 19:30 10/09/16 19:37 Sodium Chloride 0.9% IV 10/10/16 08:49 75 mls/hr .[id number] AGUS Administration Insulin Human Lispro 0 units 10/08/16 15:30 10/10/16 04:35 Humalog SC Not Given Q6H AGUS Protocol - Patient Studies Lab Studies: Lab Studies 10/10/16 10/10/16 10/10/16 Range/Units 04:31 04:10 04:10 WBC 9.5 (4.8-10.8) K/uL RBC 4.56 (4.40-5.90) Mil/uL Hgb 12.9 (12.0-18.0) g/dL Hct 38.6 (35.0-51.0) % MCV 84.8 (80.0-94.0) fl MCH 28.3 (27.0-31.0) pg MCHC 33.4 (33.0-37.0) g/dL RDW 14.0 (11.5-14.5) % Plt Count 165 (130-400) K/uL Sodium 139 (132-148) mmol/l Potassium 4.2 (3.6-5.0) MMOL/L Chloride 105 (98-107) mmol/L Carbon Dioxide 24 (22-30) mmol/L Anion Gap 14 (10-20) BUN 10 (9-20) mg/dl Creatinine 0.8 (0.8-1.5) mg/dL Est GFR ( Amer) > 60 Est GFR (Non-Af Amer) > 60 POC Glucose (mg/dL) 93 (65-110) mg/dL Random Glucose 98 (75-110) mg/dL Calcium 9.0 (8.4-10.2) mg/dL Total Bilirubin 0.4 (0.2-1.3) mg/dl AST 17 (17-59) U/L ALT 33 (21-72) U/L Alkaline Phosphatase 64 (38-126) U/L Total Protein 7.7 (6.3-8.2) G/DL Albumin 3.9 (3.5-5.0) g/dL Globulin 3.9 (2.2-3.9) gm/dL Albumin/Globulin Ratio 1.0 (1.0-2.1) 10/09/16 10/09/16 10/09/16 Range/Units 20:17 17:31 05:30 WBC (4.8-10.8) K/uL RBC (4.40-5.90) Mil/uL Hgb (12.0-18.0) g/dL Hct (35.0-51.0) % MCV (80.0-94.0) fl MCH (27.0-31.0) pg MCHC (33.0-37.0) g/dL RDW (11.5-14.5) % Plt Count (130-400) K/uL Sodium 139 (132-148) mmol/l Potassium 4.1 (3.6-5.0) MMOL/L Chloride 104 (98-107) mmol/L Carbon Dioxide 24 (22-30) mmol/L Anion Gap 14 (10-20) BUN 7 L (9-20) mg/dl Creatinine 0.7 L (0.8-1.5) mg/dL Est GFR ( Amer) > 60 Est GFR (Non-Af Amer) > 60 POC Glucose (mg/dL) 90 147 H (65-110) mg/dL Random Glucose 99 (75-110) mg/dL Calcium 8.2 L (8.4-10.2) mg/dL Total Bilirubin 0.6 (0.2-1.3) mg/dl AST 19 (17-59) U/L ALT 27 (21-72) U/L Alkaline Phosphatase 62 (38-126) U/L Total Protein 7.1 (6.3-8.2) G/DL Albumin 3.6 (3.5-5.0) g/dL Globulin 3.4 (2.2-3.9) gm/dL Albumin/Globulin Ratio 1.1 (1.0-2.1) 10/09/16 Range/Units 05:30 WBC 12.2 H D (4.8-10.8) K/uL RBC 4.50 (4.40-5.90) Mil/uL Hgb 12.7 (12.0-18.0) g/dL Hct 38.6 (35.0-51.0) % MCV 85.7 (80.0-94.0) fl MCH 28.2 (27.0-31.0) pg MCHC 32.9 L (33.0-37.0) g/dL RDW 13.7 (11.5-14.5) % Plt Count 160 (130-400) K/uL Sodium (132-148) mmol/l Potassium (3.6-5.0) MMOL/L Chloride (98-107) mmol/L Carbon Dioxide (22-30) mmol/L Anion Gap (10-20) BUN (9-20) mg/dl Creatinine (0.8-1.5) mg/dL Est GFR ( Amer) Est GFR (Non-Af Amer) POC Glucose (mg/dL) (65-110) mg/dL Random Glucose (75-110) mg/dL Calcium (8.4-10.2) mg/dL Total Bilirubin (0.2-1.3) mg/dl AST (17-59) U/L ALT (21-72) U/L Alkaline Phosphatase (38-126) U/L Total Protein (6.3-8.2) G/DL Albumin (3.5-5.0) g/dL Globulin (2.2-3.9) gm/dL Albumin/Globulin Ratio (1.0-2.1) Laboratory Results - last 24 hr 10/09/16 10/09/16 10/09/16 05:30 05:30 17:31 WBC 12.2 H D RBC 4.50 Hgb 12.7 Hct 38.6 MCV 85.7 MCH 28.2 MCHC 32.9 L RDW 13.7 Plt Count 160 Sodium 139 Potassium 4.1 Chloride 104 Carbon Dioxide 24 Anion Gap 14 BUN 7 L Creatinine 0.7 L Est GFR ( Amer) > 60 Est GFR (Non-Af Amer) > 60 POC Glucose (mg/dL) 147 H Random Glucose 99 Calcium 8.2 L Total Bilirubin 0.6 AST 19 ALT 27 Alkaline Phosphatase 62 Total Protein 7.1 Albumin 3.6 Globulin 3.4 Albumin/Globulin Ratio 1.1 10/09/16 10/10/16 10/10/16 20:17 04:10 04:10 WBC 9.5 RBC 4.56 Hgb 12.9 Hct 38.6 MCV 84.8 MCH 28.3 MCHC 33.4 RDW 14.0 Plt Count 165 Sodium 139 Potassium 4.2 Chloride 105 Carbon Dioxide 24 Anion Gap 14 BUN 10 Creatinine 0.8 Est GFR ( Amer) > 60 Est GFR (Non-Af Amer) > 60 POC Glucose (mg/dL) 90 Random Glucose 98 Calcium 9.0 Total Bilirubin 0.4 AST 17 ALT 33 Alkaline Phosphatase 64 Total Protein 7.7 Albumin 3.9 Globulin 3.9 Albumin/Globulin Ratio 1.0 10/10/16 04:31 WBC RBC Hgb Hct MCV MCH MCHC RDW Plt Count Sodium Potassium Chloride Carbon Dioxide Anion Gap BUN Creatinine Est GFR ( Amer) Est GFR (Non-Af Amer) POC Glucose (mg/dL) 93 Random Glucose Calcium Total Bilirubin AST ALT Alkaline Phosphatase Total Protein Albumin Globulin Albumin/Globulin Ratio Fingerstick Blood Sugar Results: 93 Review of Systems - Constitutional Constitutional: absent: Fever, Sweats - Cardiovascular Cardiovascular: absent: Chest Pain, Chest Pain at Rest, Chest Pain with Activity , Claudication, Diaphoresis - Respiratory Respiratory: absent: Cough, Dyspnea, Hemoptysis, Dyspnea on Exertion, Wheezing Critical Care Progress Note - Nutrition Nutrition: Nutrition Category Date Time Status Dysphagia/Modified Consistency Diet [DIET] Diets 10/10/16 Breakfast Active Assessment/Plan (1) Altered mental state Current Visit: No Status: Acute Comment: Resolved, more awake and interactive Extubated (2) Asthma Current Visit: No Status: Acute Comment: asymptomatic Albuterol q 4hrs prn for wheezing and SOB (3) Bipolar 1 disorder Current Visit: No Status: Acute Comment: managed by Psych-on Haloperidol Lactate Would place pt on 1:1 supervision now since he is awake and alert (4) Drug abuse Current Visit: No Status: Acute (5) Schizo-affective psychosis Current Visit: No Status: Acute Priority: High Comment: psyche follow up (6) Schizophrenia Current Visit: No Status: Acute (7) Suicidal ideation Current Visit: No Status: Acute Comment: psyche managing (8) Diabetes mellitus Current Visit: No Status: Chronic Comment: monitor POCT qACHS (9) HTN (hypertension) Current Visit: No Status: Chronic Comment: BP Controlled
--- NOTE | 2016-10-10 08:40 | PN ---
DATE: 10/10/2016 The patient is seen and examined. Interim events noted. Consults noted and appreciated. Intensivis t intervention noted and appreciated. The patient remains in intensive care unit now extubated. Th e patient is awake, responsive, feels okay. Denies any specific complaints of chest pain or shortnes s of breath or any withdrawal symptoms. On further questioning, the patient denies any illicit drug. The patient also denies taking additional doses of benzodiazepines. The patient is on ____ prescri bed dose. PHYSICAL EXAMINATION: GENERAL: The patient is in intensive care unit on nasal cannula, tolerating current setting without any acute respiratory distress. VITAL SIGNS: Stable. HEART: S1, S2 normal, regular. LUNGS: Good bilateral air exchange. ABDOMEN: Soft, nontender. EXTREMITIES: No edema, no calf swelling, no tenderness, no acute ischemia. CENTRAL NERVOUS SYSTEM: Essentially unchanged, and there is no sign of any acute gross focal motor o r sensory neurological deficit. DIAGNOSTIC DATA: Available diagnostic data reviewed. Telemetry monitoring does not ____. Overall, the patient's general medical condition is stable. PLAN: As ordered. Case and plan discussed with gamb cutter. Kiko Colmenares MD cc: [id number] TT: 10/10/2016 08:39:21 Confirmation # [id number] Dictation # [id number] miguel
[2016-10-10] MEDS: guaiFENesin 600 mg ER Tab PO SCH ×2 (09:18→20:10)
[2016-10-10] MEDS: Enoxaparin 40 mg Syringe SC SCH (09:18)
--- NOTE | 2016-10-10 10:18 | RAD ---
HISTORY: on vent COMPARISON: 10/09/2016 FINDINGS: LUNGS: Opacity at medial right lung base may represent developing pneumonia. Followup is advised. PLEURA: No significant pleural effusion identified, no pneumothorax apparent. CARDIOVASCULAR: Normal. OSSEOUS STRUCTURES: No significant abnormalities. VISUALIZED UPPER ABDOMEN: Normal. OTHER FINDINGS: None. IMPRESSION: Opacity at medial right lung base. Possible developing pneumonia. Followup advised.
--- NOTE | 2016-10-10 14:33 | CP.PCM.CON ---
History of Present Illness - History of Present Illness History of Present Illness: psychiatry consult ordered by dr. pizano reason: suicide attempt? cc: i don't have any psychiatric problems hpi: pt well known to this junior technical writer, dating back to his childhood when he was at [facility] ([facility]) pt has intellectual disabilities, poor impulse control, mood dysregulation and history of psychotic behaviors. He is a poor historian and minimizing his long standing struggles to keep safe in the community. pt apparently was recently discharged from a intermediate care facility and states he is linked to [facility]. He was brought to the ER when found unconscious and was intubated in the ER and admitted to ICU. he attributes this to "having sleep apnea" his urine was positive for benzodiazapines and after some time the patient admits to possibly taking more than was prescribed. He states he was upset because there were no beds in the residential. he adamantly refuses to acknowledge any psychiatric problems. he has been oppositional/ defiant on the icu and needs frequent attention from the staff. past psych history: senior living involvement in the mental health system including more than one long- term hospitalizations during both childhood and as an adult. he names risperdal , depakote and klonopin as his medications. he states he has ICMS and is supposed to be getting PACT services. states he was recently in [facility] and then retracts that statement. he was involved with DDD services and living in a half-way at one point and then signed himself out of DDD services. he was linked to [facility] and still may have services through this agency. pt will not give accurate history substance abuse history: history of pcp, synthetic mj use. pt denies recent use. ? klonopoin dependence social history: grandmother present in room, but pt not living with her and is homeless. history of out of home placement. intellectual disability. medical: pt is obese. on iv antibiotics currently mse: alert, oriented x 3. mood is anxious. affect does not match circumstances and he seems indifferent regarding his recent need to be intubated. he was laughing inappropriately. his thoughts are concrete and he is evasive. he speaks in a somewhat child-like manner. he is denying suicidal or homicidal thoughts, he denies a/v hallucinations. he is minimizing his symptoms. he has poor insight, poor judgment and poor impulse control. assessment: schizoaffective disorder, bipolar type intellectual disability recommendation: would place pt on 1:1 supervision now that he is awake and alert- he has poor impulse control and is a potential danger to self and/or elopement risk now that he is extubated based on the pt's recent suicide attempt/overdose and his long history of dangerous behaviors marked by poor impulse control, impaired judgment and erratic behavior, and on the fact that pt is denying that he has a psychiatric condition despite his long history of treatment, I am recommending that the patient be screened for involuntary hospitalization- would call [facility] for screening when pt is medically cleared. will start invega and depakote - may benefit from an invega sustenna injection if stabilizes Past Patient History - Infectious Disease Hx of Infectious Diseases: None - Tetanus Immunizations Tetanus Immunization: Unknown - Past Medical History & Family History Past Medical History?: Yes - Past Social History Smoking Status: Unknown If Ever Smoked - CARDIAC Hx Hypercholesterolemia: Yes Hx Hypertension: Yes - PULMONARY Hx Asthma: Yes - NEUROLOGICAL Hx Seizures: No - HEENT Hx Deafness: Yes Other/Comment: Hx nearsighted - RENAL Hx Chronic Kidney Disease: No - ENDOCRINE/METABOLIC Hx Hyperthyroidism: Yes Hx Hypothyroidism: Yes - HEMATOLOGICAL/ONCOLOGICAL Hx Human Immunodeficiency Virus (HIV): No - INTEGUMENTARY Hx Dermatological Problems: No - MUSCULOSKELETAL/RHEUMATOLOGICAL Hx Musculoskeletal Disorders: No Hx Falls: No - GASTROINTESTINAL Hx Gastrointestinal Disorders: No - GENITOURINARY/GYNECOLOGICAL Hx Sexually Transmitted Disorders: No - PSYCHIATRIC Hx Anxiety: Yes Hx Bipolar Disorder: Yes Hx Depression: Yes Hx Schizophrenia: No Hx Substance Use: Yes - SURGICAL HISTORY Hx Surgeries: No - ANESTHESIA Hx Anesthesia: No Meds Allergies/Adverse Reactions: Allergies Allergy/AdvReac Type Severity Reaction Status Date / Time amphetamine [From Adderall] Allergy RASH Verified 10/08/16 08:44 dextroamphetamine Allergy RASH Verified 10/08/16 08:44 [From Adderall] FISH Allergy RASH Verified 10/08/16 08:44 ibuprofen [From Motrin] Allergy RASH Verified 10/08/16 08:44 lorazepam [From Ativan] Allergy RASH Verified 10/08/16 08:44 peanut Allergy RASH Verified 10/08/16 08:44 Penicillins Allergy RASH Verified 10/08/16 08:44 shellfish derived Allergy RASH Verified 10/08/16 08:44 - Medications Medications: Current Medications Albuterol/Ipratropium (Duoneb 3 Mg/0.5 Mg (3 Ml) Ud) 3 ml INH RQ4 PRN PRN Reason: Shortness of Breath Enoxaparin Sodium (Lovenox) 40 mg SC DAILY AGUS PRN Reason: Protocol Last Admin: 10/10/16 09:18 Dose: 40 mg Guaifenesin (Mucinex La) 1,200 mg PO Q12 AGUS Last Admin: 10/10/16 09:18 Dose: 1,200 mg Haloperidol Lactate (Haldol) 2 mg IVP Q6 PRN PRN Reason: Agitation Last Admin: 10/09/16 00:34 Dose: 2 mg Clindamycin Phosphate 600 mg/ (Sodium Chloride) 104 mls @ 104 mls/hr IVPB Q8 AGUS Last Admin: 10/10/16 09:19 Dose: 104 mls/hr Insulin Human Lispro (Humalog) 0 units SC Q6H AGUS PRN Reason: Protocol Last Admin: 10/10/16 11:42 Dose: Not Given Results - Vital Signs Recent Vital Signs: Last Vital Signs Temp 98.3 F 10/10/16 12:00 Pulse 95 H 10/10/16 12:00 Resp 22 10/10/16 12:00 BP 116/69 10/10/16 12:00 Pulse Ox 99 10/10/16 12:00 - Labs Result Diagrams: 10/10/16 04:10 10/10/16 04:10 Labs: Laboratory Results - last 24 hr 10/09/16 10/09/16 10/10/16 17:31 20:17 04:10 WBC 9.5 RBC 4.56 Hgb 12.9 Hct 38.6 MCV 84.8 MCH 28.3 MCHC 33.4 RDW 14.0 Plt Count 165 Sodium Potassium Chloride Carbon Dioxide Anion Gap BUN Creatinine Est GFR ( Amer) Est GFR (Non-Af Amer) POC Glucose (mg/dL) 147 H 90 Random Glucose Calcium Total Bilirubin AST ALT Alkaline Phosphatase Total Protein Albumin Globulin Albumin/Globulin Ratio 10/10/16 10/10/16 10/10/16 04:10 04:31 11:41 WBC RBC Hgb Hct MCV MCH MCHC RDW Plt Count Sodium 139 Potassium 4.2 Chloride 105 Carbon Dioxide 24 Anion Gap 14 BUN 10 Creatinine 0.8 Est GFR ( Amer) > 60 Est GFR (Non-Af Amer) > 60 POC Glucose (mg/dL) 93 119 H Random Glucose 98 Calcium 9.0 Total Bilirubin 0.4 AST 17 ALT 33 Alkaline Phosphatase 64 Total Protein 7.7 Albumin 3.9 Globulin 3.9 Albumin/Globulin Ratio 1.0
[2016-10-10] MEDS: Paliperidone 6 MG ER TAB PO SCH (16:08)
[2016-10-10] MEDS: Albuterol 0.083% Inhal Sol (2.5 mg/3 mL) UD INH PRN (20:12)
[2016-10-10] MEDS ORDERED: Divalproex 500 mg ER (ONCE DAILY formulation) PO SCH (22:00)
[2016-10-11] MEDS: Clindamycin 600 MG in Sodium Chloride 0.9% 100 ML IVPB SCH ×3 (00:05→17:27)
[2016-10-11 05:09] LABS: MEAN CELL VOLUME 85.5 fl (80.0-94.0); MEAN CORPUSCULAR HEMOGLOBIN 28.5 pg (27.0-31.0); MEAN CORPUSCULAR HGB CONC 33.3 g/dL (33.0-37.0); RED CELL DISTRIBUTION WIDTH 13.3 % (11.5-14.5); WHITE BLOOD COUNT 7.8 K/uL (4.8-10.8)
[2016-10-11 05:26] LABS: ALKALINE PHOSPHATASE 63 U/L (38-126); ALT/SGPT 29 U/L (21-72); AST/SGOT 24 U/L (17-59); BILIRUBIN,TOTAL 0.4 mg/dl (0.2-1.3); BLOOD UREA NITROGEN 11 mg/dl (9-20); CALCIUM 8.7 mg/dL (8.4-10.2); CARBON DIOXIDE 26 mmol/L (22-30); CHLORIDE 102 mmol/L (98-107); GFR AFRICAN-AMERICAN > 60; GLUCOSE,RANDOM 96 mg/dL (75-110); POTASSIUM 4.9 MMOL/L (3.6-5.0); SODIUM 138 mmol/l (132-148); TOTAL PROTEIN 8.1 G/DL (6.3-8.2)
--- NOTE | 2016-10-11 06:46 | PQF GENQUE ---
This form is a permanent part of the medical record 10/11/16 , 1) Please clarify the ETIOLOGY of the AMS 2) Please clarify if the opiod overdose is ruled in or ruled out. Found on the ground unresponsive. History of substance abuse. Narcan given with no response. Intubated 2* respiratory distress. Urine drug screen + for Benzo only. Clarification of your documentation is requested to better reflect the severity of illness and intensity of treatment of your patient. Indicators present [] Specify: [] [] Specify: [] [] Specify: [] [] Specify: [] Location in the medical record that reflects the above clinical findings: [] Treatment Provided: [] PHYSICIAN'S RESPONSE Based on your medical judgment of the clinical indicators outlined above please clarify the following: [] Practitioner response [] If unable to determine, please check the box, sign and date. Present On Admission (POA) Indicator: [] Present at the time of admission [] Not present at the time of admission [] Clinically Undetermined In responding to this query, please exercise your independent professional judgment. The fact that a question is asked does not imply that any particular answer is desired or expected. Thank you for your clarification on this documentation. If you have any questions please call: ext [phone] * Thank you, Marielle Poe RN [facility]
--- NOTE | 2016-10-11 06:47 | PQF GENQUE ---
This form is a permanent part of the medical record 10/11/16 , The Applier has documented the following information with no mention of this diagnosis in your documentation. Please indicate in your next progress note and/or discharge summary your agreement with risk control consultant or provide clarification that this diagnosis is not a current condition. Diagnosis: Sepsis/aspiration pneumonia Documented by: Applier on 10/09/16 Found on the ground unresponsive and respiratory distress noted and intubated in the ER. + vomited. Multiple cxr with opacities . IVAB to cover aspiration. Clarification of your documentation is requested to better reflect the severity of illness and intensity of treatment of your patient. Indicators present [] Specify: [] [] Specify: [] [] Specify: [] [] Specify: [] Location in the medical record that reflects the above clinical findings: [] Treatment Provided: [] PHYSICIAN'S RESPONSE Based on your medical judgment of the clinical indicators outlined above please clarify the following: [] Practitioner response [] If unable to determine, please check the box, sign and date. Present On Admission (POA) Indicator: [] Present at the time of admission [] Not present at the time of admission [] Clinically Undetermined In responding to this query, please exercise your independent professional judgment. The fact that a question is asked does not imply that any particular answer is desired or expected. Thank you for your clarification on this documentation. If you have any questions please call:ext [phone] * Thank you, Marielle Poe RN [facility]
--- NOTE | 2016-10-11 06:49 | PQF GENQUE ---
This form is a permanent part of the medical record 10/11/16 Dr. Colmenares The RUG DRYING MACHINE OPERATOR has documented the following information with no mention of this diagnosis in your documentation. Please indicate in your next progress note and/or discharge summary your agreement with customer service and sales consultant or provide clarification that this diagnosis is not a current condition. Diagnosis: Acute Respiratory Failure Documented by: Supervisor Record Press 10/09/16 Found unresponsive on the ground in respiratory distress. O2 saturation 85%. Intubated in the er for respiratory distress, accessory muscle use. Clarification of your documentation is requested to better reflect the severity of illness and intensity of treatment of your patient. Indicators present [] Specify: [] [] Specify: [] [] Specify: [] [] Specify: [] Location in the medical record that reflects the above clinical findings: [] Treatment Provided: [] PHYSICIAN'S RESPONSE Based on your medical judgment of the clinical indicators outlined above please clarify the following: [] Practitioner response [] If unable to determine, please check the box, sign and date. Present On Admission (POA) Indicator: [] Present at the time of admission [] Not present at the time of admission [] Clinically Undetermined In responding to this query, please exercise your independent professional judgment. The fact that a question is asked does not imply that any particular answer is desired or expected. Thank you for your clarification on this documentation. If you have any questions please call: ext [phone] * Thank you, Marielle Poe RN [facility]
--- NOTE | 2016-10-11 06:51 | PQF GENQUE ---
This form is a permanent part of the medical record 10/11/16 Dr. Colmenares, Would you please clarify if there is an associated diagnosis to go along with the BMI. If yes please DOCUMENT the BMI as well. The patient is listed a s 5' 9" weighing 337 pounds with a BMI of 49.8. Please clarify if there is an associated diagnosis to go along with this finding or not. Clarification of your documentation is requested to better reflect the severity of illness and intensity of treatment of your patient. Indicators present [] Specify: [] [] Specify: [] [] Specify: [] [] Specify: [] Location in the medical record that reflects the above clinical findings: [] Treatment Provided: [] PHYSICIAN'S RESPONSE Based on your medical judgment of the clinical indicators outlined above please clarify the following: [] Practitioner response [] If unable to determine, please check the box, sign and date. Present On Admission (POA) Indicator: [] Present at the time of admission [] Not present at the time of admission [] Clinically Undetermined In responding to this query, please exercise your independent professional judgment. The fact that a question is asked does not imply that any particular answer is desired or expected. Thank you for your clarification on this documentation. If you have any questions please call:ext [phone] * Thank you, Marielle Poe RN [facility]
[2016-10-11 08:05] VITALS: BP 115/66; RESP 18; TEMP 98.6
--- NOTE | 2016-10-11 08:06 | CP.CCUPN ---
CCU Subjective - Physician Review Events Since Last Encounter (Free Text): 10/11/16 09:34 The Patient was seen and examined at the bedside with the ICU team. Management issues were discussed and formulated. 26 Y/O M. PMHx HTN, Hypercholesterolemia, Anxiety, Asthma, Bipolar Disorder, Depression, Diabetes, Hypothyroidism, Schizophrenia, drug abuse (THC, PCP, benzo ). presented on 10/08 with acute respiratory failure from drug overdose, He was intubated in ED. Pt self extubated, remains in ICU to monitor respiratory status closely which better now More awake, and interactive today Comfortable, NAD Saturating well on nasal cannula Tolerating PO diet. AFebrile Patient was evaluated by Psych yesterday, the plan is or inpatient Psych admission, Soc worker will contact [facility] today Pt stable for transfer out of ICU On IV Antibiotics with Clindamycin CCU Objective - Vital Signs / Intake & Output Vital Signs (Last 4 hours): Vital Signs Temp Pulse Resp BP Pulse Ox 10/11/16 08:04 98.6 F 95 H 18 115/66 97 Intake and Output (Last 8hrs): Intake & Output 10/10/16 10/11/16 10/11/16 22:59 06:59 14:59 Intake Total 1010 Balance 1010 Intake: IV 10 Intake, Piggyback 100 Oral 900 Other: # Voids Urine, Voided 1 # Bowel Movements 2 - Physical Exam Head: Positive for: Atraumatic, Normocephalic Pupils: Positive for: PERRL Extroacular Muscles: Positive for: EOMI Conjunctiva: Negative for: Injected, Icteric Ears: Positive for: Normal Mouth: Positive for: Moist Mucous Membranes Pharnyx: Negative for: ERYTHEMA, EXUDATE Neck: Positive for: Normal Range of Motion Respiratory/Chest: Positive for: Rhonchi Cardiovascular: Positive for: Regular Rate and Rhythm, Normal S1, S2 Abdomen: Positive for: Normal Bowel Sounds. Negative for: Tenderness, Distention Upper Extremity: Positive for: Normal Inspection, Normal ROM, NORMAL PULSES, Capillary Refill < 2s. Negative for: Cyanosis, Edema Lower Extremity: Positive for: Normal Inspection. Negative for: Edema, CALF TENDERNESS Neurological: Positive for: GCS=15, CN II-XII Intact, Speech Normal, Motor Func Grossly Intact, Normal Sensory Function Psychiatric: Positive for: Alert, Oriented x 3 - Medications Active Medications: Active Medications Generic Name Dose Route Start Last Admin Trade Name Freq PRN Reason Stop Dose Admin Albuterol Sulfate 2.5 mg 10/10/16 20:04 10/10/16 20:12 Albuterol 0.083% Inhal Alejandra (2.5 Mg/3 Ml) Ud INH 2.5 mg RQ6 PRN Administration Shortness of Breath Divalproex Sodium 500 mg 10/10/16 22:00 10/10/16 21:10 Depakote Er(Once Daily) PO 500 mg HS AGUS Administration Enoxaparin Sodium 40 mg 10/08/16 14:00 10/10/16 09:18 Lovenox SC 40 mg DAILY AGUS Administration Protocol Guaifenesin 1,200 mg 10/08/16 21:00 10/10/16 20:10 Mucinex La PO 1,200 mg Q12 AGUS Administration Haloperidol Lactate 2 mg 10/09/16 00:22 10/09/16 00:34 Haldol IVP 2 mg Q6 PRN Administration Agitation Clindamycin Phosphate 600 mg/ 104 mls @ 104 mls/hr 10/08/16 17:00 10/11/16 00 :05 Sodium Chloride IVPB 104 mls/hr Q8 AGUS Administration Insulin Human Lispro 0 units 10/08/16 15:30 10/10/16 22:00 Humalog SC Not Given Q6H AGUS Protocol Paliperidone 6 mg 10/10/16 14:45 10/10/16 16:08 Invega PO 6 mg DAILY AGUS Administration - Patient Studies Lab Studies: Lab Studies 10/11/16 10/11/16 10/10/16 Range/Units 04:40 04:35 15:39 WBC 7.8 (4.8-10.8) K/uL RBC 4.79 (4.40-5.90) Mil/uL Hgb 13.7 (12.0-18.0) g/dL Hct 41.0 (35.0-51.0) % MCV 85.5 (80.0-94.0) fl MCH 28.5 (27.0-31.0) pg MCHC 33.3 (33.0-37.0) g/dL RDW 13.3 (11.5-14.5) % Plt Count 180 (130-400) K/uL Sodium 138 (132-148) mmol/l Potassium 4.9 (3.6-5.0) MMOL/L Chloride 102 (98-107) mmol/L Carbon Dioxide 26 (22-30) mmol/L Anion Gap 15 (10-20) BUN 11 (9-20) mg/dl Creatinine 0.8 (0.8-1.5) mg/dL Est GFR ( Amer) > 60 Est GFR (Non-Af Amer) > 60 POC Glucose (mg/dL) 119 H (65-110) mg/dL Random Glucose 96 (75-110) mg/dL Calcium 8.7 (8.4-10.2) mg/dL Total Bilirubin 0.4 (0.2-1.3) mg/dl AST 24 (17-59) U/L ALT 29 (21-72) U/L Alkaline Phosphatase 63 (38-126) U/L Total Protein 8.1 (6.3-8.2) G/DL Albumin 4.0 (3.5-5.0) g/dL Globulin 4.1 H (2.2-3.9) gm/dL Albumin/Globulin Ratio 1.0 (1.0-2.1) / Range/Units 11:41 WBC (4.8-10.8) K/uL RBC (4.40-5.90) Mil/uL Hgb (12.0-18.0) g/dL Hct (35.0-51.0) % MCV (80.0-94.0) fl MCH (27.0-31.0) pg MCHC (33.0-37.0) g/dL RDW (11.5-14.5) % Plt Count (130-400) K/uL Sodium (132-148) mmol/l Potassium (3.6-5.0) MMOL/L Chloride (98-107) mmol/L Carbon Dioxide (22-30) mmol/L Anion Gap (10-20) BUN (9-20) mg/dl Creatinine (0.8-1.5) mg/dL Est GFR ( Amer) Est GFR (Non-Af Amer) POC Glucose (mg/dL) 119 H (65-110) mg/dL Random Glucose (75-110) mg/dL Calcium (8.4-10.2) mg/dL Total Bilirubin (0.2-1.3) mg/dl AST (17-59) U/L ALT (21-72) U/L Alkaline Phosphatase (38-126) U/L Total Protein (6.3-8.2) G/DL Albumin (3.5-5.0) g/dL Globulin (2.2-3.9) gm/dL Albumin/Globulin Ratio (1.0-2.1) Laboratory Results - last 24 hr 10/10/16 10/10/16 10/11/16 11:41 15:39 04:35 WBC 7.8 RBC 4.79 Hgb 13.7 Hct 41.0 MCV 85.5 MCH 28.5 MCHC 33.3 RDW 13.3 Plt Count 180 Sodium Potassium Chloride Carbon Dioxide Anion Gap BUN Creatinine Est GFR ( Amer) Est GFR (Non-Af Amer) POC Glucose (mg/dL) 119 H 119 H Random Glucose Calcium Total Bilirubin AST ALT Alkaline Phosphatase Total Protein Albumin Globulin Albumin/Globulin Ratio 10/11/16 04:40 WBC RBC Hgb Hct MCV MCH MCHC RDW Plt Count Sodium 138 Potassium 4.9 Chloride 102 Carbon Dioxide 26 Anion Gap 15 BUN 11 Creatinine 0.8 Est GFR ( Amer) > 60 Est GFR (Non-Af Amer) > 60 POC Glucose (mg/dL) Random Glucose 96 Calcium 8.7 Total Bilirubin 0.4 AST 24 ALT 29 Alkaline Phosphatase 63 Total Protein 8.1 Albumin 4.0 Globulin 4.1 H Albumin/Globulin Ratio 1.0 Fingerstick Blood Sugar Results: 119 Review of Systems - Cardiovascular Cardiovascular: absent: Chest Pain, Chest Pain at Rest, Chest Pain with Activity , Claudication, Diaphoresis - Respiratory Respiratory: Cough. absent: Dyspnea, Hemoptysis, Dyspnea on Exertion, Wheezing - Gastrointestinal Gastrointestinal: absent: Abdominal Pain Critical Care Progress Note - Extremities/Vascular Does the Patient have a Central Venous Catheter?: No Does the Patient need a Central Venous Catheter?: No Does the Patient have a Fofana Catheter?: No Does the Patient need a Fofana Catheter?: No - Nutrition Nutrition: Nutrition Category Date Time Status Regular Diet [DIET] Diets 10/10/16 Breakfast Active Assessment/Plan (1) Altered mental state Current Visit: No Status: Acute Comment: Resolved, more awake and interactive Extubated, Saturating well on nasal cannula (2) Asthma Current Visit: No Status: Acute Comment: asymptomatic Albuterol q 4hrs prn for wheezing and SOB (3) Bipolar 1 disorder Current Visit: No Status: Acute Comment: managed by Psych-on Haloperidol Lactate Would place pt on 1:1 supervision now since he is awake and alert (4) Drug abuse Current Visit: No Status: Acute (5) Schizo-affective psychosis Current Visit: No Status: Acute Priority: High Comment: psyche follow up (6) Schizophrenia Current Visit: No Status: Acute (7) Suicidal ideation Current Visit: No Status: Acute Comment: psyche managing (8) Diabetes mellitus Current Visit: No Status: Chronic Comment: monitor POCT qACHS (9) HTN (hypertension) Current Visit: No Status: Chronic Comment: BP Controlled
[2016-10-11] MEDS: Enoxaparin 40 mg Syringe SC SCH (08:39)
[2016-10-11] MEDS: Paliperidone 6 MG ER TAB PO SCH (08:40)
[2016-10-11] MEDS: guaiFENesin 600 mg ER Tab PO SCH (08:40)
[2016-10-11] MEDS: Albuterol 0.083% Inhal Sol (2.5 mg/3 mL) UD INH PRN (09:13)
[2016-10-11] MEDS: Insulin Lispro (humaLOG) 100 Units/ml Inj SC SCH ×2 (09:30→15:30)
[2016-10-11 12:24] VITALS: PULSE 88; O2SAT 100
--- NOTE | 2016-10-11 15:16 | CP.PCM.PN ---
Subjective - Date & Time of Evaluation Date of Evaluation: 10/11/16 - Subjective Subjective: The patient is seen and examined. Interim events noted. Consults noted and appreciated. Parts Interpreter intervention noted and appreciated. The patient remains in intensive care unit now on 1:1 observation The patient is awake, responsive, feels okay. Denies any specific complaints of chest pain or shortness of breath or any withdrawal symptoms. PHYSICAL EXAMINATION: GENERAL: The patient is in intensive care unit on nasal cannula, tolerating current setting without any acute respiratory distress. VITAL SIGNS: Stable. HEART: S1, S2 normal, regular. LUNGS: Good bilateral air exchange. ABDOMEN: Soft, nontender. EXTREMITIES: No edema, no calf swelling, no tenderness, no acute ischemia. CENTRAL NERVOUS SYSTEM: Essentially unchanged, and there is no sign of any acute gross focal motor or sensory neurological deficit. DIAGNOSTIC DATA: Available diagnostic data reviewed. Telemetry monitoring does not reveal any significant arrythmias Oveer all p is improving and stable Plan: As ordered. Case and plan d/w pt and consultants. Objective - Vital Signs/Intake and Output Vital Signs (last 24 hours): Temp Pulse Resp BP Pulse Ox 98.6 F 88 18 115/66 100 10/11/16 12:23 10/11/16 12:23 10/11/16 12:23 10/11/16 08:04 10/11/16 12:23 Intake and Output: 10/11/16 10/11/16 06:59 18:59 Intake Total 10 Balance 10 - Medications Medications: Current Medications Albuterol Sulfate (Albuterol 0.083% Inhal Alejandra (2.5 Mg/3 Ml) Ud) 2.5 mg INH RQ6 PRN PRN Reason: Shortness of Breath Last Admin: 10/11/16 09:13 Dose: 2.5 mg Divalproex Sodium (Depakote Er(Once Daily)) 500 mg PO HS AGUS Last Admin: 10/10/16 21:10 Dose: 500 mg Guaifenesin (Mucinex La) 1,200 mg PO Q12 AGUS Last Admin: 10/11/16 08:40 Dose: 1,200 mg Haloperidol Lactate (Haldol) 2 mg IVP Q6 PRN PRN Reason: Agitation Last Admin: 10/09/16 00:34 Dose: 2 mg Clindamycin Phosphate 600 mg/ (Sodium Chloride) 104 mls @ 104 mls/hr IVPB Q8 [facility] Last Admin: 10/11/16 08:39 Dose: 104 mls/hr Insulin Human Lispro (Humalog) 0 units SC Q6H [facility] PRN Reason: Protocol Last Admin: 10/10/16 22:00 Dose: Not Given Paliperidone (Invega) 6 mg PO DAILY [facility] Last Admin: 10/11/16 08:40 Dose: 6 mg - Labs Labs: 10/11/16 04:35 10/11/16 04:40 PT 12.5 Seconds (9.8-13.1) 10/08/16 09:00 INR 1.1 (0.9-1.2) 10/08/16 09:00 APTT 31.2 Seconds (25.6-37.1) 10/08/16 09:00
== END 2016-10-11 18:27 | DRG 917 ==
LOC: H.ER 08:38 → H.ERHOLD 11:21 → H.ICU/CCU 12:48
PROVIDERS: ADMIT Internal Medicine; ATTEND Internal Medicine
PROC: 5A1945Z Respiratory Ventilation, 24-96 Consecutive Hours (ICD-10-PCS; principal; 2016-10-08)
PROC: 0BH17EZ Insertion of Endotracheal Airway into Trachea, Via Natural or Artificial Opening (ICD-10-PCS; 2016-10-08)
PROC: 3E0234Z Introduction of Serum, Toxoid and Vaccine into Muscle, Percutaneous Approach (ICD-10-PCS; 2016-10-08)
DX: T42.4X1A Poisoning by benzodiazepines, accidental (unintentional), initial encounter (principal); J69.0 Pneumonitis due to inhalation of food and vomit; J96.00 Acute respiratory failure, unspecified whether with hypoxia or hypercapnia; J98.11 Atelectasis; Z68.42 Body mass index [BMI] 45.0-49.9, adult; F25.0 Schizoaffective disorder, bipolar type; I10 Essential (primary) hypertension; J45.909 Unspecified asthma, uncomplicated; E78.00 Pure hypercholesterolemia, unspecified; E03.9 Hypothyroidism, unspecified; E11.9 Type 2 diabetes mellitus without complications; F79 Unspecified intellectual disabilities; E66.9 Obesity, unspecified; S00.03XA Contusion of scalp, initial encounter; E05.90 Thyrotoxicosis, unspecified without thyrotoxic crisis or storm; F41.9 Anxiety disorder, unspecified; Z23 Encounter for immunization; Z88.6 Allergy status to analgesic agent; Z91.010 Allergy to peanuts; Z91.013 Allergy to seafood; Y92.9 Unspecified place or not applicable; F16.10 Hallucinogen abuse, uncomplicated; Z78.1 Physical restraint status; X58.XXXA Exposure to other specified factors, initial encounter; Y93.9 Activity, unspecified; Y92.480 Sidewalk as the place of occurrence of the external cause

== ENCOUNTER 2016-10-11 18:24 | Inpatient (IN) | payer MEDICARE, MEDICAID ==
[2016-10-11 19:02] VITALS: BMI 50.8
[2016-10-11] MEDS ORDERED: Alum-Mag Hydrox-Simethicone Susp (30 mL) PO PRN (20:14)
[2016-10-11] MEDS ORDERED: DiphenhydrAMINE 50 mg/ml Inj IM PRN (20:14)
[2016-10-11] MEDS ORDERED: Magnesium Hydroxide Susp 30 ml UD PO PRN (20:14)
[2016-10-11 21:17] VITALS: RESP 20
[2016-10-11] MEDS: Divalproex 500 mg ER (ONCE DAILY formulation) PO SCH (21:28)
[2016-10-12 07:27] LABS: CHOLESTEROL 242 mg/dL (0-199)
[2016-10-12] MEDS: Paliperidone 6 MG ER TAB PO SCH (09:04)
--- NOTE | 2016-10-12 10:19 | CP.PCM.CON ---
History of Present Illness - History of Present Illness History of Present Illness: C/C: Transferred from ICU for psychiatric management HISTORY OF PRESENT ILLNESS: This is a 26-year-old male with known case of anxiety, bipolar disorder, bronchial asthma, hypertension, diabetes, thyroid disorder and drug abuse, who was found unresponsive and was brought to Emergency Room and was found in respiratory distress and was intubated and was placed on ventilator and was treated in intensive care unit. The patient was extubated, improved and was eveluated by Psych svc and was transferred here for further treatment after stabilized medically. ROS: neg for medical complains PAST MEDICAL HISTORY: Significant for hypertension, diabetes mellitus, thyroid disorder, bipolar disorder, asthma, anxiety, schizophrenia and substance abuse. PAST SURGICAL HISTORY: Nonremarkable. PERSONAL HISTORY: The patient has history of substance abuse. MEDICATIONS: The patient is on multiple meds as per reconcilliation sheet, which was reviewed. FAMILY HISTORY: Noncontributory. ALLERGIES: THE PATIENT IS ALLERGIC TO AMPHETAMINES, FISH, IBUPROFEN. PHYSICAL EXAMINATION: GENERAL: Well-built, overweight 26-year-old male, in NAD VITAL SIGNS: Temperature afebrile, pulse 85, respirations 18, blood pressure 110/70, saturation 96%. HEENT: Pupils reacting to light. NECK: No JVD, no thyromegaly, no lymphadenopathy. HEART: S1, S2 normal, regular. No significant murmur, gallop or rub is heard. LUNGS: Shows good bilateral air exchange. No rales or rhonchi, some transmitted sounds. ABDOMEN: Soft, nontender, no organomegaly, no fluid. Bowel sounds are plus. EXTREMITIES: No edema, no calf swelling, no tenderness, no acute ischemia. CENTRAL NERVOUS SYSTEM: Non focal DIAGNOSTIC DATA: Available diagnostic data reviewed. Pt is medically emma Haney for consult, we will follow pt with you Past Patient History - Infectious Disease Hx of Infectious Diseases: None - Tetanus Immunizations Tetanus Immunization: Unknown - Past Medical History & Family History Past Medical History?: Yes - Past Social History Smoking Status: Unknown If Ever Smoked - CARDIAC Hx Hypercholesterolemia: Yes Hx Hypertension: Yes - PULMONARY Hx Respiratory Disorders: Yes Hx Asthma: Yes - NEUROLOGICAL Hx Seizures: Yes - HEENT Hx Deafness: Yes Other/Comment: Hx nearsighted - RENAL Hx Chronic Kidney Disease: No - ENDOCRINE/METABOLIC Hx Hyperthyroidism: Yes Hx Hypothyroidism: Yes - HEMATOLOGICAL/ONCOLOGICAL Hx Blood Disorders: No Hx Human Immunodeficiency Virus (HIV): No - INTEGUMENTARY Hx Dermatological Problems: No - MUSCULOSKELETAL/RHEUMATOLOGICAL Hx Musculoskeletal Disorders: No Hx Falls: No - GASTROINTESTINAL Hx Gastrointestinal Disorders: No - GENITOURINARY/GYNECOLOGICAL Hx Sexually Transmitted Disorders: No - PSYCHIATRIC Hx Anxiety: Yes Hx Bipolar Disorder: Yes Hx Substance Use: Yes - SURGICAL HISTORY Hx Surgeries: No - ANESTHESIA Hx Anesthesia: No Meds Allergies/Adverse Reactions: Allergies Allergy/AdvReac Type Severity Reaction Status Date / Time amphetamine [From Adderall] Allergy RASH Verified 10/08/16 08:44 dextroamphetamine Allergy RASH Verified 10/08/16 08:44 [From Adderall] FISH Allergy RASH Verified 10/08/16 08:44 ibuprofen [From Motrin] Allergy RASH Verified 10/08/16 08:44 lorazepam [From Ativan] Allergy RASH Verified 10/08/16 08:44 peanut Allergy RASH Verified 10/08/16 08:44 Penicillins Allergy RASH Verified 10/08/16 08:44 shellfish derived Allergy RASH Verified 10/08/16 08:44 - Medications Medications: Current Medications Acetaminophen (Tylenol 325mg Tab) 650 mg PO Q4 PRN PRN Reason: Pain, moderate (4-7) Last Admin: 10/11/16 23:07 Dose: 650 mg Al Hydrox/Mg Hydrox/Simethicone (Maalox Plus 30 Ml) 30 ml PO Q4 PRN PRN Reason: Dyspepsia Diphenhydramine HCl (Benadryl) 50 mg IM Q6 PRN PRN Reason: Extrapyramidal S/S Unable PO Diphenhydramine HCl (Benadryl) 50 mg PO HS PRN PRN Reason: Sleep Last Admin: 10/11/16 22:52 Dose: 50 mg Divalproex Sodium (Depakote Er(Once Daily)) 500 mg PO HS AGUS Last Admin: 10/11/16 21:28 Dose: 500 mg Haloperidol (Haldol) 5 mg PO Q4 PRN PRN Reason: Agitation Haloperidol Lactate (Haldol) 5 mg IM Q4 PRN PRN Reason: Agitation, Unable to Take PO Magnesium Hydroxide (Milk Of Magnesia) 30 ml PO HS PRN PRN Reason: Constipation Nicotine (Nicoderm Cq) 1 patch TD DAILY AGUS Last Admin: 10/12/16 09:05 Dose: Not Given Paliperidone (Invega) 6 mg PO DAILY AGUS Last Admin: 10/12/16 09:04 Dose: 6 mg Results - Vital Signs Recent Vital Signs: Last Vital Signs Temp 97.1 F L 10/12/16 09:11 Pulse 98 H 10/12/16 09:11 Resp 20 10/12/16 09:11 BP 121/96 H 10/12/16 09:11 Pulse Ox - Labs Labs: Laboratory Results - last 24 hr 10/12/16 07:06 Triglycerides 154 H Cholesterol 242 H LDL Cholesterol Direct 215 H HDL Cholesterol 23 L
--- NOTE | 2016-10-12 17:38 | PCM.PYCHPN ---
Psychiatric Progress Note - Psychiatric Progress Note Patient seen today, length of contact: chart reviewed case discussed with team 35 min spent Patient Chief Complaint: took an extra dose of clonazepam by accident per admission. denies suicidal attempt. reports was getting clonazepam in community does recall which pharmacy possible prescribed by unknown md in [place], [place]. staff report pt has been somnolent for most of day. requires frequent redirection. defers need for psychiatric medications. Problems Identified/Issues Discussed: alteration in coping recent intubation 2nd to overdose clonoazepam ? cognitive delay Medical Problems: per chart Diagnostic Results: per psych medicine per nursing per social insurance analyst per recreational therapy DSM 5 Symptoms Update: alteration in cognition Medication Change: No Medical Record Reviewed: Yes Mental Status Examination - Cognitive Function Orientation: Person, Place, Situation Memory: Impaired Attention: Poor Concentration: Poor Association: Loose Fund of Knowledge: Poor Decription of patient's judgement and insights: impaired - Mood Additional comments: denies having any mood changes - Affect Affect: Constricted - Speech Speech: Slurred Additional comments: at times - Formal Thought Process Formal Thought Process: Paranoia, Loosening of associations - Suicidal Ideation Suicidal Ideation: No - Homicidal Ideation Homicidal Ideation: No Goal/Treatment Plan - Goal/Treatment Plan Need for Continued Stay: Remain at risks for inpatient hospitalization, Discharge may exacerbated symptoms Progress Toward Problem(s) and Goals/Treatment Plan: inpt milieu adjust meds per status vital signs and clinical observation per protocol and per clinical status pt has submitted 48 hr notice reviewed with pt-defers withdrawal Estimated Date of D/C: 10/14/16 - Smoking Cessation Smoking Cessation Initiated: Yes
[2016-10-12] MEDS: Divalproex 500 mg ER (ONCE DAILY formulation) PO SCH (21:30)
[2016-10-13 07:56] VITALS: BP 132/74; PULSE 96; TEMP 97
[2016-10-13] MEDS: Paliperidone 6 MG ER TAB PO SCH (08:20)
--- NOTE | 2016-10-13 09:46 | PCM.PYCHDC ---
Mental Status Examination - Mental Status Examination Orientation: Person, Place, Situation, Time Memory: Intact Mood: Anxious (regarding discharge) Speech: Appropriate Attention: WNL Concentration: WNL Association: WNL Fund of Knowledge: WNL Formal Thought Process: No Impairment Description of patient's judgement and insight: fair i/j Psychotic Thoughts and Behaviors: denies a/v hallucinations Suicidal Ideation: No Current Homicidal Ideation?: No Plan: pt denies any suicidal or homicidal thoughts/plans or intent Discharge Summary - Discharge Note Reason for Hospitalization: suspected overdose on his medications Psychiatric History (includes Medical, Family, Personal Hx): long history of behavioral problems Laboratory Data: Abnormal Lab Results 10/12/16 10/12/16 07:06 07:06 Hemoglobin A1c 5.5 RPR Nonreactive Consultations:: List each consultation separately and include: 1. Reason for request. 2. Findings. 3. Follow-up Consultations: followed by hospitalist Summary of Hospital Course include:: 1. Description of specific treatment plan utilized for patients during their course of treatmen. 2. Summarize the time- course for resolution of acute symptoms and/or regressed behaviors. 3. Describe issues identified and worked on during hospitalization. 4. Describe medication utilized. 5. Describe medical problems identified and treated. 6. Reassessment of suicide risk Summary of Hospital Course: pt was admitted to [facility] and oriented to the unit. was restarted on the medications he was taking while on the medical floor. pt was in behavioral control. no acute medical issues. pt was intrusive with peers and staff, but not exhibiting any aggression or psychotic behaviors. pt was agreeing to follow up with aftercare. his invega will be switched to risperdal at the time of discharge. pt is denying any suicidal or homicidal thoughts at the time of discharge. - Final Diagnosis (DSM 5) Condition upon Discharge: GOOD DSM 5: schizoaffective disorder Disposition: HOME/ ROUTINE Follow-up Treatment Plan: follow up with aftercare as directed take medications as prescribed do not use alcohol, tobacco or other illicit substance call 911 if any suicidal or homicidal thoughts Prescriptions/Medication Reconciliation: Divalproex [Depakote ER(ONCE DAILY)] 500 mg PO HS #30 ter Risperidone [Risperdal] 3 mg PO HS #30 tablet - Smoking Cessation Smoking Cessation Medication prescribed: No Reason for not providing: refused - Antipsychotic Medications Pt discharged on 2 or more routine antipsychotic medications: No
== END 2016-10-13 10:18 | disposition home or self-care (01) | DRG 885 ==
LOC: H.STEP 19:03 → H.PSYCH 19:26
PROVIDERS: ADMIT Psychiatry & Neurology Psychiatry; ATTEND Psychiatry & Neurology Psychiatry
PROC: GZHZZZZ Group Psychotherapy (ICD-10-PCS; principal; 2016-10-11)
PROC: GZ58ZZZ Individual Psychotherapy, Cognitive-Behavioral (ICD-10-PCS; 2016-10-11)
DX: F25.9 Schizoaffective disorder, unspecified (principal); F31.9 Bipolar disorder, unspecified; F41.9 Anxiety disorder, unspecified; E11.9 Type 2 diabetes mellitus without complications; I10 Essential (primary) hypertension; E03.9 Hypothyroidism, unspecified; E78.00 Pure hypercholesterolemia, unspecified; J45.909 Unspecified asthma, uncomplicated; Z88.6 Allergy status to analgesic agent; Z91.010 Allergy to peanuts; Z91.013 Allergy to seafood

== ENCOUNTER 2016-10-13 17:27 | Observation (INO) | payer MEDICAID, MEDICARE ==
[2016-10-13 17:39] VITALS: BP 134/76; RESP 16; TEMP 98.8; O2SAT 99
--- NOTE | 2016-10-13 19:03 | ED PDOC ---
HPI: General Adult Time Seen by Provider: 10/13/16 18:07 Chief Complaint (Nursing): Dizziness/Lightheaded History Per: Patient History/Exam Limitations: intoxication Additional Complaint(s): Pt. states he was discharged from the Psych Unit today and afterwards he "took a couple pietro's, klonopin, and drank beer." Of note, pt. was admitted into ICU on 10/08/16 for drug overdose and was intubated. Denies chest pain, SOB, palpitations (contrary to triage note). Past Medical History Vital Signs: Last Vital Signs Temp 98.8 F 10/13/16 17:37 Pulse 112 H 10/13/16 20:09 Resp 16 10/13/16 17:37 BP 134/76 10/13/16 17:45 Pulse Ox 99 10/13/16 20:09 - Medical History PMH: Anxiety, Asthma, Bipolar Disorder, Depression, Diabetes (Type I and II), HTN, Hypercholesterolemia, Hyperthyroidism, Hypothyroidism, Seizures Denies: Hepatitis, HIV, Chronic Kidney Disease, Schizophrenia, Sexually Transmitted Disease - Family History Family History: States: Unknown Family Hx - Home Medications Home Medications: Ambulatory Orders Medication Instructions Recorded Divalproex [Depakote ER(ONCE 500 mg PO HS #30 ter 10/13/16 DAILY)] Risperidone [Risperdal] 3 mg PO HS #30 tablet 10/13/16 - Allergies Allergies/Adverse Reactions: Allergies Allergy/AdvReac Type Severity Reaction Status Date / Time amphetamine [From Adderall] Allergy RASH Verified 10/13/16 17:37 dextroamphetamine Allergy RASH Verified 10/13/16 17:37 [From Adderall] ibuprofen [From Motrin] Allergy RASH Verified 10/13/16 17:37 lorazepam [From Ativan] Allergy RASH Verified 10/13/16 17:37 peanut Allergy RASH Verified 10/13/16 17:37 Penicillins Allergy RASH Verified 10/13/16 17:37 shellfish derived Allergy RASH Verified 10/13/16 17:37 Review of Systems Review Of Systems: ROS cannot be obtained secondary to pt's inabilty to answer questions. Physical Exam - Reviewed Nursing Documentation Reviewed: Yes Vital Signs Reviewed: Yes - Physical Exam Appears: Positive for: Well, Non-toxic, No Acute Distress Head Exam: Positive for: ATRAUMATIC, NORMAL INSPECTION, NORMOCEPHALIC Skin: Positive for: Normal Color, Warm. Negative for: Rash Eye Exam: Positive for: EOMI, Normal appearance, PERRL ENT: Positive for: Normal ENT Inspection Neck: Positive for: Normal, Painless ROM Cardiovascular/Chest: Positive for: Regular Rate, Rhythm Respiratory: Positive for: CNT, Normal Breath Sounds Gastrointestinal/Abdominal: Positive for: Normal Exam, Bowel Sounds, Soft. Negative for: Tenderness Back: Positive for: Normal Inspection Extremity: Positive for: Normal ROM Neurologic/Psych: Positive for: Alert, Oriented, Mood/Affect (whimsical; pt. constantly repeating hx of previous intubation) - Laboratory Results Result Diagrams: 10/13/16 19:15 10/13/16 19:15 - ECG ECG: Positive for: Interpreted By Me ECG Rhythm: Positive for: Normal QRS, Sinus Tachycardia Rate: 112 O2 Sat by Pulse Oximetry: 99 - Progress ED Course And Treament: Labs ordered. Pt. placed on 1:1. Case d/w Dr. Freitas and agrees with plan. Case d/w Richard, poison control, who agrees with care and only recommends supportive treatment at this time. Disposition - Clinical Impression Clinical Impression: Polysubstance abuse - Patient ED Disposition Is Patient to be Admitted: Transfer of Care (Signed out to Kiko RAMOS pending diagnostic results and final disposition) - Disposition Disposition Time: 20:00 Condition: STABLE
[2016-10-13 19:31] LABS: BASO # 0.1 K/uL (0.0-0.2); BASO % 0.8 % (0.0-2.0); EOS # 0.2 K/uL (0.0-0.7); EOS % 1.9 % (0.0-4.0); HEMOGLOBIN 14.3 g/dL (12.0-18.0); LYMPH # 2.2 K/uL (1.0-4.3); LYMPH % 17.8 % (20.0-40.0); MEAN CELL VOLUME 84.5 fl (80.0-94.0); MEAN CORPUSCULAR HEMOGLOBIN 29.1 pg (27.0-31.0); MEAN CORPUSCULAR HGB CONC 34.4 g/dL (33.0-37.0); MEAN PLATELET VOLUME 9.2 fl (7.2-11.7); MONO # 1.1 K/uL (0.0-0.8); MONO % 9.2 % (0.0-10.0); NEUT # 8.8 K/uL (1.8-7.0); NEUT % 70.3 % (50.0-75.0); RBC 4.91 Mil/uL (4.40-5.90); RED CELL DISTRIBUTION WIDTH 13.4 % (11.5-14.5); WHITE BLOOD COUNT 12.5 K/uL (4.8-10.8)
[2016-10-13 19:34] LABS: SALICYLATE < 1.0 mg/dl
[2016-10-13 19:35] LABS: ALBUMIN 4.3 g/dL (3.5-5.0); ALT/SGPT 28 U/L (21-72); AST/SGOT 46 U/L (17-59); BLOOD UREA NITROGEN 10 mg/dl (9-20); CALCIUM 8.7 mg/dL (8.4-10.2); GFR AFRICAN-AMERICAN > 60; GFR NON-AFRICAN AMERICAN > 60
[2016-10-13 19:39] LABS: VALPROIC ACID 15.9 ug/mL (50.0-100.0)
[2016-10-13 19:48] VITALS: PULSE 112
[2016-10-13 19:51] LABS: ACETAMINOPHEN < 10.0 ug/ml (10.0-30.0)
[2016-10-13 20:10] LABS: BARBITURATES, UR NEGATIVE (NEGATIVE); BENZODIAZEPINES, UR NEGATIVE (NEGATIVE); OPIATES, UR NEGATIVE (NEGATIVE); PHENCYCLIDINE, UR NEGATIVE (NEGATIVE)
[2016-10-13 20:16] LABS: SQUAMOUS EPITHIAL < 1 /hpf (0-5); URINE BILIRUBIN NEGATIVE (NEGATIVE); URINE BLOOD NEGATIVE (NEGATIVE); URINE CLARITY CLEAR (Clear); URINE COLOR YELLOW (YELLOW); URINE GLUCOSE (UA) NEG (Normal); URINE LEUKOCYTE ESTERASE NEG Leu/uL (Negative); URINE NITRATE NEGATIVE (NEGATIVE); URINE PROTEIN 30 mg/dL (NEGATIVE); URINE UROBILINOGEN 0.2-1.0 mg/dL (0.2-1.0)
--- NOTE | 2016-10-13 20:16 | ED PDOC ---
- Laboratory Results Result Diagrams: 10/13/16 19:15 10/13/16 19:15 - ECG O2 Sat by Pulse Oximetry: 99 - Progress ED Course And Treament: case signed out to brief writer. Pt pending crisis eval and labs results. Pt placed on 1:1 observation for elopement. Pt admits to taking multiple drugs- poison control was contacted-pt to be observed EKG-sightly prolonged QT interval, mildly tachycardia. Medical Decision Making Medical Decision Making: dx for d/c: depression under MD Christian Pt is currently stable VS and stable gait and clear speech. Disposition - Clinical Impression Clinical Impression: Polysubstance abuse, Depression - POA Present On Arrival: None - Disposition Disposition: Routine/Home Disposition Time: 20:19 Condition: STABLE
--- NOTE | 2016-10-14 09:01 | RAD ---
HISTORY: clearance COMPARISON: 10/10/2016 FINDINGS: LUNGS: Mild to moderate venous congestion. Right hilar prominence/consolidation. Milder left hilar prominence. PLEURA: As above. CARDIOVASCULAR: Cardiomegaly. OSSEOUS STRUCTURES: No significant abnormalities. VISUALIZED UPPER ABDOMEN: Normal. OTHER FINDINGS: None. IMPRESSION: Mild to moderate venous congestion. Right hilar prominence/consolidation. Milder left hilar prominence.
--- NOTE | 2016-10-14 17:19 | CARD ---
APPROVED REPORT EKG Measurement Heart [id number] <Conclusion> Sinus tachycardia Otherwise normal ECG
== END 2016-10-13 20:19 | disposition home or self-care (01) ==
LOC: H.ER 17:27 → H.EROBSV 18:56
PROVIDERS: ADMIT Emergency Medicine; ATTEND Emergency Medicine
DX: F19.10 Other psychoactive substance abuse, uncomplicated (principal); E05.90 Thyrotoxicosis, unspecified without thyrotoxic crisis or storm; R42 Dizziness and giddiness; F41.9 Anxiety disorder, unspecified; F41.8 Other specified anxiety disorders; J45.909 Unspecified asthma, uncomplicated; E11.9 Type 2 diabetes mellitus without complications; I10 Essential (primary) hypertension; E78.00 Pure hypercholesterolemia, unspecified; E03.9 Hypothyroidism, unspecified; G40.909 Epilepsy, unspecified, not intractable, without status epilepticus

== ENCOUNTER 2016-10-14 16:55 | Emergency (ER) | payer MEDICAID ==
[2016-10-14 17:06] VITALS: BP 139/114; PULSE 119; RESP 19; TEMP 97.4; O2SAT 99
--- NOTE | 2016-10-14 18:44 | ED PDOC ---
HPI: General Adult Time Seen by Provider: 10/14/16 17:45 Chief Complaint (Nursing): Dizziness/Lightheaded Chief Complaint (Provider): Nose Bleed History Per: Patient History/Exam Limitations: no limitations Onset/Duration Of Symptoms: Mins (prior to arrival) Current Symptoms Are (Timing): Better Additional Complaint(s): 26 y/o male presents to the emergency department with a complaint of an atraumatic left nostril bleeding prior to arrival. States he attempted to eat a sandwich and vomited while the bleeding was occurring. Reports that bleeding has since stopped. Denies SI/HI, hallucinations, head injury, weakness, trauma, or abdominal pain. Past Medical History Reviewed: Historical Data, Nursing Documentation, Vital Signs Vital Signs: Last Vital Signs Temp 97.4 F L 10/14/16 17:02 Pulse 119 H 10/14/16 17:02 Resp 19 10/14/16 17:02 BP 139/114 H 10/14/16 17:02 Pulse Ox 99 10/14/16 19:18 - Medical History PMH: Anxiety, Asthma, Bipolar Disorder, Depression, Diabetes (Type I and II), HTN, Hypercholesterolemia, Hyperthyroidism, Hypothyroidism, Seizures Denies: Hepatitis, HIV, Chronic Kidney Disease, Schizophrenia, Sexually Transmitted Disease - Family History Family History: States: No Known Family Hx - Home Medications Home Medications: Ambulatory Orders Medication Instructions Recorded Divalproex [Depakote ER(ONCE 500 mg PO HS #30 ter 10/13/16 DAILY)] Risperidone [Risperdal] 3 mg PO HS #30 tablet 10/13/16 - Allergies Allergies/Adverse Reactions: Allergies Allergy/AdvReac Type Severity Reaction Status Date / Time amphetamine [From Adderall] Allergy RASH Verified 10/13/16 17:37 dextroamphetamine Allergy RASH Verified 10/13/16 17:37 [From Adderall] ibuprofen [From Motrin] Allergy RASH Verified 10/13/16 17:37 lorazepam [From Ativan] Allergy RASH Verified 10/13/16 17:37 peanut Allergy RASH Verified 10/13/16 17:37 Penicillins Allergy RASH Verified 10/13/16 17:37 shellfish derived Allergy RASH Verified 10/13/16 17:37 Review of Systems ROS Statement: Except As Marked, All Systems Reviewed And Found Negative Constitutional: Negative for: Weakness, Other (Head injury) ENT: Positive for: Nose Discharge (Blood (Had resolved prior to arrival)) Gastrointestinal: Negative for: Abdominal Pain Physical Exam - Reviewed Nursing Documentation Reviewed: Yes Vital Signs Reviewed: Yes - Physical Exam Appears: Positive for: Well, Non-toxic, No Acute Distress Head Exam: Positive for: ATRAUMATIC, NORMAL INSPECTION, NORMOCEPHALIC Skin: Positive for: Normal Color, Warm, Dry ENT: Positive for: Pharynx Is (Clear with no active bleeding.), Other (Left nostril with dry blood noted. No active bleeding. ). Negative for: Normal ENT Inspection Cardiovascular/Chest: Positive for: Regular Rate, Rhythm. Negative for: Murmur Respiratory: Positive for: Normal Breath Sounds. Negative for: Accessory Muscle Use, Respiratory Distress Gastrointestinal/Abdominal: Positive for: Normal Exam, Soft. Negative for: Tenderness Neurologic/Psych: Positive for: Alert, Oriented, Gait (steady and unassisted). Negative for: Aphasia, Facial Droop - ECG O2 Sat by Pulse Oximetry: 99 (RA) Pulse Ox Interpretation: Normal - Progress ED Course And Treament: Repeat BP: 146/86, HR: 96 Pt. eloped from ED prior to re-evaluation. Medical Decision Making Medical Decision Making: Time: 17:45 Initial impression: Epistaxis --Patient eloped prior to ED evaluation Scribe Attestation: Documented by Alissa Forrester, acting as a scribe for Prosper Andrews PA-C. Provider Scribe Attestation: All medical record entries made by the Scribe were at my direction and personally dictated by me. I have reviewed the chart and agree that the record accurately reflects my personal performance of the history, physical exam, medical decision making, and the department course for this patient. I have also personally directed, reviewed, and agree with the discharge instructions and disposition. Disposition - Clinical Impression Clinical Impression: Epistaxis - Disposition Disposition: Eloped Disposition Time: 19:10 Condition: UNKNOWN
== END 2016-10-14 18:30 | disposition left against medical advice (07) ==
LOC: H.ER 16:55
DX: R04.0 Epistaxis (principal); Z88.0 Allergy status to penicillin

== ENCOUNTER 2016-10-14 20:42 | Emergency (ER) | payer MEDICAID ==
[2016-10-14 21:00] VITALS: BP 118/70; PULSE 124; RESP 18; TEMP 98.6; O2SAT 94
--- NOTE | 2016-10-14 21:35 | ED PDOC ---
HPI: General Adult Time Seen by Provider: 10/14/16 20:46 Chief Complaint (Nursing): ENT Problem Chief Complaint (Provider): Nosebleed - Resolved History Per: Patient History/Exam Limitations: no limitations Onset/Duration Of Symptoms: Days Additional Complaint(s): Pt was just discharged from the ER and did not leave waiting room when he registered for nose bleed. PT is no longer having nose bleeding. Denies complaint. Past Medical History Reviewed: Historical Data, Nursing Documentation, Vital Signs Vital Signs: Last Vital Signs Temp 98.6 F 10/14/16 20:58 Pulse 124 H 10/14/16 20:58 Resp 18 10/14/16 20:58 BP 118/70 10/14/16 20:58 Pulse Ox 94 L 10/14/16 20:58 - Medical History PMH: Anxiety, Asthma, Bipolar Disorder, Depression, Diabetes (Type I and II), HTN, Hypercholesterolemia, Hyperthyroidism, Hypothyroidism, Seizures Denies: Hepatitis, HIV, Chronic Kidney Disease, Schizophrenia, Sexually Transmitted Disease - Family History Family History: States: Unknown Family Hx - Home Medications Home Medications: Ambulatory Orders Medication Instructions Recorded Divalproex [Depakote ER(ONCE 500 mg PO HS #30 ter 10/13/16 DAILY)] Risperidone [Risperdal] 3 mg PO HS #30 tablet 10/13/16 - Allergies Allergies/Adverse Reactions: Allergies Allergy/AdvReac Type Severity Reaction Status Date / Time amphetamine [From Adderall] Allergy RASH Verified 10/13/16 17:37 dextroamphetamine Allergy RASH Verified 10/13/16 17:37 [From Adderall] ibuprofen [From Motrin] Allergy RASH Verified 10/13/16 17:37 lorazepam [From Ativan] Allergy RASH Verified 10/13/16 17:37 peanut Allergy RASH Verified 10/13/16 17:37 Penicillins Allergy RASH Verified 10/13/16 17:37 shellfish derived Allergy RASH Verified 10/13/16 17:37 Review of Systems ROS Statement: Except As Marked, All Systems Reviewed And Found Negative ENT: Negative for: Mouth Pain, Throat Pain Gastrointestinal: Negative for: Nausea, Abdominal Pain Physical Exam - Reviewed Nursing Documentation Reviewed: Yes Vital Signs Reviewed: Yes - Physical Exam Appears: Positive for: Well, Non-toxic, No Acute Distress Head Exam: Positive for: ATRAUMATIC, NORMAL INSPECTION, NORMOCEPHALIC Skin: Positive for: Normal Color, Warm, DRY Eye Exam: Positive for: Normal appearance ENT: Positive for: Normal ENT Inspection Neck: Positive for: Normal, Painless ROM Cardiovascular/Chest: Positive for: Regular Rate, Rhythm Respiratory: Positive for: Normal Breath Sounds. Negative for: Accessory Muscle Use, Respiratory Distress Back: Positive for: Normal Inspection Extremity: Positive for: Normal ROM Neurologic/Psych: Positive for: Alert, Oriented - ECG O2 Sat by Pulse Oximetry: 94 Medical Decision Making Medical Decision Making: Pt left ER prior to discharge papers being printed. Disposition - Clinical Impression Clinical Impression: Epistaxis - Patient ED Disposition Is Patient to be Admitted: No Counseled Patient/Family Regarding: Diagnosis, Need For Followup - Disposition Disposition: Routine/Home Disposition Time: 21:15 Condition: GOOD
--- NOTE | 2016-10-20 07:09 | CARD ---
APPROVED REPORT EKG Measurement Heart [id number] <Conclusion> Sinus tachycardia Otherwise normal ECG
== END 2016-10-14 21:13 | disposition left against medical advice (07) ==
LOC: H.ER 20:42
DX: R04.0 Epistaxis (principal); E03.9 Hypothyroidism, unspecified; E11.9 Type 2 diabetes mellitus without complications; F31.9 Bipolar disorder, unspecified; Z79.4 Long term (current) use of insulin; Z88.0 Allergy status to penicillin

== ENCOUNTER 2016-10-14 22:16 | Observation (INO) | payer MEDICAID ==
[2016-10-14] MEDS ORDERED: Sodium Chloride 0.9% 1,000 ML IV STA (22:39)
[2016-10-14 22:52] LABS: ABG ALLEN TEST YES; ARTERIAL BLOOD GAS HCO3 24.9 mmol/L (21-28); ARTERIAL BLOOD GAS O2 SAT 96.2 % (95-98); ARTERIAL BLOOD GAS PCO2 38 mm/Hg (35-45); ARTERIAL BLOOD GAS PH 7.42 (7.35-7.45); ARTERIAL BLOOD GAS PO2 56 mm/Hg (80-100); ARTERIAL BLOOD GAS TCO2 25.8 mmol/L (22-28)
[2016-10-14 23:06] LABS: BASO # 0.1 K/uL (0.0-0.2); BASO % 0.7 % (0.0-2.0); EOS # 0.1 K/uL (0.0-0.7); EOS % 0.8 % (0.0-4.0); LYMPH # 2.6 K/uL (1.0-4.3); LYMPH % 19.7 % (20.0-40.0); MEAN CELL VOLUME 84.8 fl (80.0-94.0); MEAN CORPUSCULAR HEMOGLOBIN 28.3 pg (27.0-31.0); MEAN CORPUSCULAR HGB CONC 33.3 g/dL (33.0-37.0); MEAN PLATELET VOLUME 8.8 fl (7.2-11.7); MONO # 1.1 K/uL (0.0-0.8); MONO % 8.1 % (0.0-10.0); NEUT # 9.2 K/uL (1.8-7.0); NEUT % 70.7 % (50.0-75.0); RBC 4.96 Mil/uL (4.40-5.90); RED CELL DISTRIBUTION WIDTH 13.4 % (11.5-14.5)
[2016-10-14] MEDS ORDERED: Activated Charcoal/Sorbitol 25 GM/120 ML PO ONE (23:14)
[2016-10-14 23:20] LABS: SALICYLATE < 1.0 mg/dl
[2016-10-14 23:20] LABS: ALB/GLOB RATIO 1.2 (1.0-2.1); ALBUMIN 4.5 g/dL (3.5-5.0); ALT/SGPT 45 U/L (21-72); AST/SGOT 31 U/L (17-59); BLOOD UREA NITROGEN 13 mg/dl (9-20); CALCIUM 9.1 mg/dL (8.4-10.2); GFR AFRICAN-AMERICAN > 60; GFR NON-AFRICAN AMERICAN > 60
[2016-10-14 23:21] LABS: ACETAMINOPHEN < 10.0 ug/ml (10.0-30.0)
--- NOTE | 2016-10-14 23:35 | ED PDOC ---
HPI: Psych/Substance Abuse Time Seen by Provider: 10/14/16 22:32 Chief Complaint (Nursing): Psychiatric Evaluation Chief Complaint (Provider): Psychiatric Evaluation History Per: Patient History/Exam Limitations: intoxication (risperdal overdose) Onset/Duration Of Symptoms: Mins (prior to arrival) Current Symptoms Are (Timing): Still Present Additional Complaint(s): Vaibhav Granados is a 26 year old male with previous medical history of bipolar disorder, who presents to the emergency department via EMS after he was found unresponsive prior to arrival in which he was unable to answer any questions initially. Patient was awake after 15 minutes and stated he overdosed on his Risperdal associated with nosebleeds but refused to admit amount taken. Reported that he "took enough to ". Has been to ED recently for nosebleeds and psych complaints. Caveat: Due to patient's reported overdose, medical history and symptoms may be unreliable. PMD: none provided Past Medical History Reviewed: Historical Data, Nursing Documentation, Vital Signs Vital Signs: Last Vital Signs Temp 100 F H 10/14/16 22:21 Pulse 145 H 10/14/16 22:21 Resp 16 10/14/16 22:21 BP 138/67 10/14/16 22:21 Pulse Ox 95 10/14/16 22:21 - Medical History PMH: Anxiety, Asthma, Bipolar Disorder, Depression, Diabetes (Type I and II), HTN, Hypercholesterolemia, Hyperthyroidism, Hypothyroidism, Seizures Denies: Hepatitis, HIV, Chronic Kidney Disease, Schizophrenia, Sexually Transmitted Disease - Family History Family History: States: Unknown Family Hx - Home Medications Home Medications: Ambulatory Orders Medication Instructions Recorded Divalproex [Depakote ER(ONCE 500 mg PO HS #30 ter 10/13/16 DAILY)] Risperidone [Risperdal] 3 mg PO HS #30 tablet 10/13/16 - Allergies Allergies/Adverse Reactions: Allergies Allergy/AdvReac Type Severity Reaction Status Date / Time amphetamine [From Adderall] Allergy RASH Verified 10/13/16 17:37 dextroamphetamine Allergy RASH Verified 10/13/16 17:37 [From Adderall] ibuprofen [From Motrin] Allergy RASH Verified 10/13/16 17:37 lorazepam [From Ativan] Allergy RASH Verified 10/13/16 17:37 peanut Allergy RASH Verified 10/13/16 17:37 Penicillins Allergy RASH Verified 10/13/16 17:37 shellfish derived Allergy RASH Verified 10/13/16 17:37 Review of Systems Review Of Systems: ROS cannot be obtained secondary to pt's inabilty to answer questions. (risperdal overdose) ENT: Positive for: Nose Discharge (nosebleed) Physical Exam - Reviewed Nursing Documentation Reviewed: Yes Vital Signs Reviewed: Yes - Physical Exam Appears: Positive for: Well (sleepy appearance), Non-toxic, No Acute Distress Head Exam: Positive for: ATRAUMATIC, NORMAL INSPECTION, NORMOCEPHALIC Skin: Positive for: Normal Color, Warm, Dry Eye Exam: Positive for: Normal appearance, EOMI, PERRL. Negative for: Nystagmus ENT: Positive for: Pharynx Is (clear), Other (dried blood in nares with tacky mucous membranes). Negative for: Normal ENT Inspection (septal hematoma) Neck: Positive for: Normal, Painless ROM, Supple Cardiovascular/Chest: Positive for: Tachycardia (with regular rhythm). Negative for: Murmur Respiratory: Positive for: Normal Breath Sounds. Negative for: Respiratory Distress Gastrointestinal/Abdominal: Positive for: Normal Exam, Bowel Sounds, Soft, Other (obese and protuberant). Negative for: Tenderness Back: Positive for: Normal Inspection. Negative for: L CVA Tenderness, R CVA Tenderness Extremity: Positive for: Normal ROM. Negative for: Deformity (or adenopathy) Neurologic/Psych: Positive for: Alert, slab polisher II-XII, Oriented, Mood/Affect (angry and agitated), Other (sleepy, arousable, and responsive) - Laboratory Results Result Diagrams: 10/14/16 22:45 10/14/16 22:45 - ECG O2 Sat by Pulse Oximetry: 95 (RA) Pulse Ox Interpretation: Normal Medical Decision Making Medical Decision Making: Initial Impression: schizophrenia; Possible drug overdose Initial Plan: * CT head without contrast * EKG * Drug screen * Valproic acid * Urine dipstick * Activated charcoal 50mg IM * Ativan 2mg IM * NS 1,000ml IV 1,000 mls/hr * monitoring and evaluation advisor * 1:1 obs for suicide prevention * Call poison control * Glucose, blood, POC * Urinary straight catherization * Admit to hospital --Poison control consult: Spoke with Jose who advised symptomatic treatment and to repeat EKG in 3-4 hours for conduction abnormality. --Patient refused Charcoal 50mg. Pt started to scream in ER for no reason, otherwise his exam was unchanged. Ativan 2mg IM ordered. Scribe Attestation: Documented by Melissa Haney, acting as a scribe for Iza Hodges MD. Provider Scribe Attestation: All medical record entries made by the Scribe were at my direction and personally dictated by me. I have reviewed the chart and agree that the record accurately reflects my personal performance of the history, physical exam, medical decision making, and the department course for this patient. I have also personally directed, reviewed, and agree with the discharge instructions and disposition. Disposition - Clinical Impression Clinical Impression: Overdose - Disposition Disposition: Transfer of Care Disposition Time: 22:45 Condition: STABLE Patient Signed Over To: Silvino Todd Handoff Comments: Pending ER workup reassessment and final ER dispo
[2016-10-14 23:42] LABS: BARBITURATES, UR NEGATIVE (NEGATIVE); BENZODIAZEPINES, UR NEGATIVE (NEGATIVE); OPIATES, UR NEGATIVE (NEGATIVE); PHENCYCLIDINE, UR NEGATIVE (NEGATIVE)
--- NOTE | 2016-10-15 02:57 | CT ---
EXAM: CT Head Without Intravenous Contrast CLINICAL HISTORY: 26 years old, male; Pain; Headache; Headache not specified; Additional info: AMS tachycardia TECHNIQUE: Axial computed tomography images of the head/brain without intravenous contrast. This CT exam was performed using one or more of the following dose reduction techniques: automated exposure control, adjustment of the mA and/or kV according to patient size, and/or use of iterative reconstruction technique. Coronal and sagittal reformatted images were created and reviewed. EXAM DATE/TIME: Exam ordered 10/14/2016 10:37 PM COMPARISON: No relevant prior studies available. FINDINGS: Brain: In the frontal regions, se2 axial 17, there is a concern on loss of will-white differentiation left greater than right. Note that this may be partly related to artifacts which are better appreciated on coronal image 22, if there is suspicion for an acute cerebral event magnetic resonance imaging is recommended. No hemorrhage. Ventricles: Unremarkable. No ventriculomegaly. Bones/joints: No fractures of the calvarium. Coronal reconstructions with no evidence of fractures of the orbits. Soft tissues: Unremarkable. Sinuses: There is a mucous retention cyst or polyp in the right frontal sinus. No air-fluid levels in the paranasal sinuses. Mastoid air cells: Mastoid air cells are clear. Other findings: Please compare on site, report but no images available. IMPRESSION: Please compare on site, there is no previous available. Loss of will-white matter differentiation in the left frontal region is suggested series 2 image 17, there may be focal hypoattenuation in the posterior left internal capsule series 2 image 17. If there is concern for acute cerebrovascular event, or for possible edema related to a mass lesion, magnetic resonance imaging is recommended.
--- NOTE | 2016-10-15 03:31 | ED PDOC ---
- Laboratory Results Result Diagrams: 10/14/16 22:45 10/14/16 22:45 - ECG O2 Sat by Pulse Oximetry: 95 (RA) Pulse Ox Interpretation: Normal Medical Decision Making Medical Decision Making: Time: 23:00 --Patient was transferred to [place] by Iza Hodges MD. Pending clinical sobriety. Time: 3:04 --Patient was seen and examined at bedside. No neurological deficits noted. Stroke scale: 0 Cannot obtain MRI overnight. Patient to be admitted to Dr. Colmenares. Dr. Hardy to consult. Currently patient at his baseline status. 5AM: Pt. remains without neurological deficit. Scribe Attestation: Documented by Melissa Haney, acting as a scribe for Silvino Todd MD. Provider Scribe Attestation: All medical record entries made by the Scribe were at my direction and personally dictated by me. I have reviewed the chart and agree that the record accurately reflects my personal performance of the history, physical exam, medical decision making, and the department course for this patient. I have also personally directed, reviewed, and agree with the discharge instructions and disposition. Disposition - Clinical Impression Clinical Impression: Overdose, Abnormal head CT - POA Present On Arrival: None - Disposition Disposition: Hospitalized as Observation Patient Disposition Time: 04:00 Condition: STABLE NIHSS Stroke Scale - Date/Time Evaluation Performed Date Performed: 10/15/16 Time Performed: 03:00 When Was NIHSS Performed: Baseline - How Severe is the Stroke Level of Consciousness: 0=Alert LOC to Questions: 0=Both comments correct LOC to commands: 0=Obeys both correctly Best Gaze: 0=Normal Visual: 0=No visual loss Facial: 0=Normal Motor Arm - Left: 0=No drift Motor Arm - Right: 0=No drift Motor Leg - Left: 0=No drift Motor Leg - Right: 0=No drift Limb Ataxia: 0=Absent Sensory: 0=Normal Best Language: 0=No aphasia Dysarthia: 0=Normal articulation Extinction & Inattention (Neglect): 0=Normal, no object Score: 0
--- NOTE | 2016-10-15 07:50 | RAD ---
HISTORY: tachycardia hypoxia COMPARISON: No prior. FINDINGS: LUNGS: No active pulmonary disease. PLEURA: No significant pleural effusion identified, no pneumothorax apparent. CARDIOVASCULAR: Normal. OSSEOUS STRUCTURES: No significant abnormalities. VISUALIZED UPPER ABDOMEN: Normal. OTHER FINDINGS: None. IMPRESSION: No active disease.
[2016-10-15 08:40] VITALS: BP 123/72; PULSE 105; RESP 18
--- NOTE | 2016-10-15 10:14 | CP.PCM.HP ---
History of Present Illness - History of Present Illness History of Present Illness: CHIEF COMPLAINT: Found unresponsive. HPI: 26 y/o male who recently had singed out AMA from this hospital took OD of risperdal ( enough to ) and was found nresponsive and was brought to ER and admitted for further Mx. PAST MEDICAL HISTORY: Significant for hypertension, diabetes mellitus, thyroid disorder, bipolar disorder, asthma, anxiety, schizophrenia and substance abuse. PAST SURGICAL HISTORY: Nonremarkable. PERSONAL HISTORY: The patient has history of substance abuse. MEDICATIONS: As per reconcilliation sheet Allergies: NKA FAMILY HISTORY: Noncontributory. ALLERGIES: THE PATIENT IS ALLERGIC TO AMPHETAMINES, FISH, IBUPROFEN. PHYSICAL EXAMINATION: GENERAL: Well-built, overweight 26-year-old male, sleepy , arousable, does not want to get into much conversation VITAL SIGNS: Temperature afebrile, pulse 100, respirations 17, blood pressure 107/67, saturation 96%. HEENT: Pupils reacting to light. HEART: S1, S2 normal, regular. NECK: No JVD , no thyromegaly, no lymphadenopathy. HEART: S1, S2 normal, regular. No significant murmur, gallop or rub is heard. LUNGS: Shows good bilateral air exchange. No rales or rhonchi, some transmitted sounds. ABDOMEN: Soft, nontender, no organomegaly, no fluid. Bowel sounds are plus. EXTREMITIES: No edema, no calf swelling, no tenderness, no acute ischemia. CENTRAL NERVOUS SYSTEM: Non focal Diagnostic data: Available diagnostic data reviewed. Telemetry monitoring does not reveal significant arrythmias Ct: ? CVA Imp: ? CVA Risperdal OD HTN DM MO BMI - 53 Plan : As ordered Present on Admission - Present on Admission Any Indicators Present on Admission: No Past Patient History - Infectious Disease Hx of Infectious Diseases: None - Tetanus Immunizations Tetanus Immunization: Unknown - Past Medical History & Family History Past Medical History?: Yes - Past Social History Smoking Status: Current Some Days Smoker - CARDIAC Hx Hypercholesterolemia: Yes Hx Hypertension: Yes - PULMONARY Hx Asthma: Yes - NEUROLOGICAL Hx Seizures: Yes - HEENT Hx HEENT Problems: Yes Other/Comment: Hx nearsighted - RENAL Hx Chronic Kidney Disease: No - ENDOCRINE/METABOLIC Hx Hypothyroidism: Yes - HEMATOLOGICAL/ONCOLOGICAL Hx AIDS: No Hx Human Immunodeficiency Virus (HIV): No - INTEGUMENTARY Hx Dermatological Problems: No - MUSCULOSKELETAL/RHEUMATOLOGICAL Hx Musculoskeletal Disorders: No Hx Falls: Yes - GASTROINTESTINAL Hx Gastrointestinal Disorders: No - GENITOURINARY/GYNECOLOGICAL Hx Sexually Transmitted Disorders: No - PSYCHIATRIC Hx Anxiety: Yes Hx Bipolar Disorder: Yes Hx Depression: Yes Hx Schizophrenia: No Hx Substance Use: Yes - SURGICAL HISTORY Hx Surgeries: No - ANESTHESIA Hx Anesthesia: No Meds Allergies/Adverse Reactions: Allergies Allergy/AdvReac Type Severity Reaction Status Date / Time amphetamine [From Adderall] Allergy RASH Verified 10/13/16 17:37 dextroamphetamine Allergy RASH Verified 10/13/16 17:37 [From Adderall] ibuprofen [From Motrin] Allergy RASH Verified 10/13/16 17:37 lorazepam [From Ativan] Allergy RASH Verified 10/13/16 17:37 peanut Allergy RASH Verified 10/13/16 17:37 Penicillins Allergy RASH Verified 10/13/16 17:37 shellfish derived Allergy RASH Verified 10/13/16 17:37 Results - Vital Signs Recent Vital Signs: Last Vital Signs Temp 98.7 F 10/15/16 08:00 Pulse 105 H 10/15/16 08:00 Resp 18 10/15/16 08:00 BP 123/72 10/15/16 08:00 Pulse Ox 97 10/15/16 08:00 - Labs Result Diagrams: 10/14/16 22:45 10/14/16 22:45 Labs: Laboratory Results - last 24 hr 10/15/16 07:06 POC Glucose (mg/dL) 96
--- NOTE | 2016-10-15 10:19 | CP.PCM.CON ---
History of Present Illness - History of Present Illness History of Present Illness: NEURO CONSULT NOTE: 10/15/16 CHIEF COMPLAINT: ABNORMAL CT HEAD HPI: THIS IS A 24 YEAR OLD MAN WITH HISTORY OF BIPOLAR DISORDER WAS FOUND UNRESPONSIVE OUTSIDE A [employer]. HE MENTIONS THAT HE OVERDOSE ON RISPERDAL PILLS. CT HEAD SHOWED A ? LEFT FRONTAL HYPODENSITY WHICH TO ME IS NOT A STROKE, MOSTLY A ARTIFACT. CURRENTLY HE IS MOVING ALL EXTREMITIES AND NO FOCAL NEUROLOGICAL DEFICITS. HE IS HOMELESS. ROS: 14 POINT REVIEW OF SYMPTOMS IS NEGATIVE PER HPI. ALLERGIES: AMPHETAMINE, DEXTROAMPHETAMINE, IBUPROPHEN. SOCIAL HISTORY: NO ILLICIT DRUG USE, SMOKING, OR ETOH USE. FAMILY: NON CONTRIBUTORY. MEDICATIONS: REVIEWED BY NURSE'S RECONCILIATION SHEET. PAST MEDICAL HISTORY: BIPOLAR DISORDER PHYSICAL EXAM: VITAL SIGNS: REVIEWED BY THE CHART GENERAL EXAM: PATIENT SEEN IN BED, IN NO ACUTE DISTRESS HEENT: PERRLA, EOMI, NECK SUPPLE, NO JVD, NO ADENOPATHY CVS: S1, S2, RRR, NO MURMURS NOTED LUNGS: CLEAR TO AUSCULTATION, NO ADVENTITIOUS SOUNDS ABDOMEN: SOFT AND NONTENDER EXTREMITIES: NO CLUBBING OR CYANOSIS. PP 2+ B/L NEURO: PT IS ALERT AND ORIENTED TO PERSON, PLACE, AND YEAR. , RECALL TO 5 MINUTES 3/3, SPEECH IS FLUENT WITHOUT ERRORS, CN II-XII INTACT, MOTOR EXAM: NORMAL TONE, NORMAL BULK OF MUSCLE, MOVES ALL EXTREMITIES EQUALLY, NO PRONATOR DRIFT SEEN. SENSORY EXAM: LIGHT TOUCH, PIN PRICK UP TO CALVES B/L, PROPRIOCEPTION , VIBRATION ARE INTACT B/L DEEP TENDON REFLEXES: 2+ THROUGHOUT. COORDINATION: FINGER TO NOSE IS INTACT. HEEL TO VARGAS IS INTACT GAIT: NORMAL. LABS: REVIEWED BY THE CHART. ASSESSMENT AND PLAN: THIS IS A 24 YEAR OLD MAN WITH HISTORY OF BIPOLAR DISORDER WAS FOUND UNRESPONSIVE OUTSIDE A [employer]. HE MENTIONS THAT HE OVERDOSE ON RISPERDAL PILLS. CT HEAD SHOWED A ? LEFT FRONTAL HYPODENSITY WHICH TO ME IS NOT A STROKE, MOSTLY A ARTIFACT. CURRENTLY HE IS MOVING ALL EXTREMITIES AND NO FOCAL NEUROLOGICAL DEFICITS. HE IS HOMELESS. IMPRESSION: RISPERDAL OVERDOSE IS MORE ANXIETY AND DEPRESSION RELATED. 1. ASA 81 MG FOR STROKE PREVENTION 2.PSYCH CONSULT FOR BIPOLAR DISORDER. 3. FIORECET AT THE ACUTE ONSET OF HEADACHE. 4.C/W PRESENT MX. THANK YOU. Wiliam TORRE MD Past Patient History - Infectious Disease Hx of Infectious Diseases: None - Tetanus Immunizations Tetanus Immunization: Unknown - Past Medical History & Family History Past Medical History?: Yes - Past Social History Smoking Status: Current Some Days Smoker - CARDIAC Hx Hypercholesterolemia: Yes Hx Hypertension: Yes - PULMONARY Hx Asthma: Yes - NEUROLOGICAL Hx Seizures: Yes - HEENT Hx HEENT Problems: Yes Other/Comment: Hx nearsighted - RENAL Hx Chronic Kidney Disease: No - ENDOCRINE/METABOLIC Hx Hypothyroidism: Yes - HEMATOLOGICAL/ONCOLOGICAL Hx AIDS: No Hx Human Immunodeficiency Virus (HIV): No - INTEGUMENTARY Hx Dermatological Problems: No - MUSCULOSKELETAL/RHEUMATOLOGICAL Hx Musculoskeletal Disorders: No Hx Falls: Yes - GASTROINTESTINAL Hx Gastrointestinal Disorders: No - GENITOURINARY/GYNECOLOGICAL Hx Sexually Transmitted Disorders: No - PSYCHIATRIC Hx Anxiety: Yes Hx Bipolar Disorder: Yes Hx Depression: Yes Hx Schizophrenia: No Hx Substance Use: Yes - SURGICAL HISTORY Hx Surgeries: No - ANESTHESIA Hx Anesthesia: No Meds Allergies/Adverse Reactions: Allergies Allergy/AdvReac Type Severity Reaction Status Date / Time amphetamine [From Adderall] Allergy RASH Verified 10/13/16 17:37 dextroamphetamine Allergy RASH Verified 10/13/16 17:37 [From Adderall] ibuprofen [From Motrin] Allergy RASH Verified 10/13/16 17:37 lorazepam [From Ativan] Allergy RASH Verified 10/13/16 17:37 peanut Allergy RASH Verified 10/13/16 17:37 Penicillins Allergy RASH Verified 10/13/16 17:37 shellfish derived Allergy RASH Verified 10/13/16 17:37 Results - Vital Signs Recent Vital Signs: Last Vital Signs Temp 98.7 F 10/15/16 08:00 Pulse 105 H 10/15/16 08:00 Resp 18 10/15/16 08:00 BP 123/72 10/15/16 08:00 Pulse Ox 97 10/15/16 08:00 - Labs Result Diagrams: 10/14/16 22:45 10/14/16 22:45 Labs: Laboratory Results - last 24 hr 10/15/16 07:06 POC Glucose (mg/dL) 96
[2016-10-15 10:21] VITALS: TEMP 98.1
[2016-10-15 22:09] VITALS: O2SAT 95
--- NOTE | 2016-10-17 06:59 | CARD ---
APPROVED REPORT EKG Measurement Heart [id number] <Conclusion> Sinus tachycardia Otherwise normal ECG
--- NOTE | 2016-10-17 07:00 | CARD ---
APPROVED REPORT EKG Measurement Heart [id number] <Conclusion> Sinus tachycardia Otherwise normal ECG
== END 2016-10-15 17:50 | disposition home or self-care (01) ==
LOC: H.ER 22:16 → H.ERHOLD 10-15 04:10 → H.TEL 10-15 05:39
PROVIDERS: ADMIT Internal Medicine; ATTEND Internal Medicine
DX: T43.591A Poisoning by other antipsychotics and neuroleptics, accidental (unintentional), initial encounter (principal); R41.82 Altered mental status, unspecified; E66.01 Morbid (severe) obesity due to excess calories; Z68.43 Body mass index [BMI] 50.0-59.9, adult; F31.9 Bipolar disorder, unspecified; Z59.0 Homelessness; R04.0 Epistaxis; Z88.6 Allergy status to analgesic agent; J45.909 Unspecified asthma, uncomplicated; E10.9 Type 1 diabetes mellitus without complications; E78.00 Pure hypercholesterolemia, unspecified; I10 Essential (primary) hypertension; E03.9 Hypothyroidism, unspecified; R93.0 Abnormal findings on diagnostic imaging of skull and head, not elsewhere classified

== ENCOUNTER 2016-10-16 09:31 | Emergency (ER) | payer MEDICAID ==
[2016-10-16 09:41] VITALS: BP 144/96; PULSE 124; TEMP 97; O2SAT 95; BMI 21.5
--- NOTE | 2016-10-16 10:06 | ED PDOC ---
HPI: Psych/Substance Abuse Time Seen by Provider: 10/16/16 09:35 Chief Complaint (Nursing): Psychiatric Evaluation History Per: Patient, EMS History/Exam Limitations: no limitations Onset/Duration Of Symptoms: Days (1) Current Symptoms Are (Timing): Still Present Involuntary Hold By: None Additional History Per: Patient Additional Complaint(s): Pt reports no complains at this time. Past Medical History Reviewed: Historical Data, Nursing Documentation, Vital Signs Vital Signs: Last Vital Signs Temp 97 F L 10/16/16 09:37 Pulse 124 H 10/16/16 09:37 Resp BP 144/96 H 10/16/16 09:37 Pulse Ox 95 10/16/16 09:37 - Medical History PMH: Anxiety, Asthma, Bipolar Disorder, Depression, Diabetes (Type I and II), HTN, Hypercholesterolemia, Hyperthyroidism, Hypothyroidism, Seizures Denies: Hepatitis, HIV, Chronic Kidney Disease, Schizophrenia, Sexually Transmitted Disease - Surgical History Surgical History: No Surg Hx - Family History Family History: States: Unknown Family Hx - Home Medications Home Medications: Ambulatory Orders Medication Instructions Recorded Divalproex [Depakote ER(ONCE 500 mg PO HS #30 ter 10/13/16 DAILY)] Risperidone [Risperdal] 3 mg PO HS #30 tablet 10/13/16 - Allergies Allergies/Adverse Reactions: Allergies Allergy/AdvReac Type Severity Reaction Status Date / Time amphetamine [From Adderall] Allergy RASH Verified 10/13/16 17:37 dextroamphetamine Allergy RASH Verified 10/13/16 17:37 [From Adderall] ibuprofen [From Motrin] Allergy RASH Verified 10/13/16 17:37 lorazepam [From Ativan] Allergy RASH Verified 10/13/16 17:37 peanut Allergy RASH Verified 10/13/16 17:37 Penicillins Allergy RASH Verified 10/13/16 17:37 shellfish derived Allergy RASH Verified 10/13/16 17:37 Review of Systems ROS Statement: Except As Marked, All Systems Reviewed And Found Negative Physical Exam - Reviewed Nursing Documentation Reviewed: Yes Vital Signs Reviewed: Yes - Physical Exam Appears: Positive for: Non-toxic, No Acute Distress Eye Exam: Positive for: Normal appearance Cardiovascular/Chest: Positive for: Regular Rate, Rhythm Respiratory: Positive for: Respiratory Distress Neurologic/Psych: Positive for: Alert, Oriented - ECG O2 Sat by Pulse Oximetry: 95 Medical Decision Making Medical Decision Making: Impression Agitation resolved. No complains offered at this time. No SI or HI No criteria for crisis eval or psych hold. Disposition - Clinical Impression Clinical Impression: Substance abuse - Patient ED Disposition Is Patient to be Admitted: No Doctor Will See Patient In The: Office Counseled Patient/Family Regarding: Studies Performed, Diagnosis, Need For Followup - Disposition Disposition: Left W/O Treatment Disposition Time: 10:00 Condition: GOOD
== END 2016-10-16 10:10 | disposition left against medical advice (07) ==
LOC: H.ER 09:31
DX: F19.10 Other psychoactive substance abuse, uncomplicated (principal)

== ENCOUNTER 2016-10-16 16:40 | Emergency (ER) | payer MEDICARE, MEDICAID ==
[2016-10-16 16:41] VITALS: BMI 21.5
[2016-10-16 16:45] VITALS: BP 143/80; PULSE 97; RESP 20; TEMP 98; O2SAT 98
== END 2016-10-16 17:00 | disposition home or self-care (01) ==
LOC: H.ER 16:40
DX: Z02.89 Encounter for other administrative examinations (principal)

== ENCOUNTER 2016-10-17 20:43 | Emergency (ER) | payer MEDICAID ==
[2016-10-17 20:43] VITALS: BMI 21.5
[2016-10-17 20:49] VITALS: BP 140/91; PULSE 100; RESP 20; TEMP 98; O2SAT 100
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
== END 2016-10-17 20:58 | disposition home or self-care (01) ==
LOC: H.ER 20:43
DX: R53.1 Weakness (principal); E03.9 Hypothyroidism, unspecified; E05.90 Thyrotoxicosis, unspecified without thyrotoxic crisis or storm; E78.00 Pure hypercholesterolemia, unspecified; F31.9 Bipolar disorder, unspecified; F41.9 Anxiety disorder, unspecified; I10 Essential (primary) hypertension; Z79.4 Long term (current) use of insulin; Z88.0 Allergy status to penicillin

== ENCOUNTER 2016-10-18 02:20 | Observation (INO) | payer MEDICAID, MEDICARE ==
[2016-10-18 02:21] VITALS: BMI 21.5
[2016-10-18 02:29] VITALS: BP 144/75; PULSE 102; RESP 17; TEMP 98.6; O2SAT 100
[2016-10-18] MEDS ORDERED: Ammonia 2% Inhalant ONE (03:00)
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
== END 2016-10-18 22:34 | disposition home or self-care (01) ==
LOC: H.ER 02:20 → H.EROBSV 03:09
PROVIDERS: ADMIT Emergency Medicine; ATTEND Emergency Medicine
DX: F12.129 Cannabis abuse with intoxication, unspecified (principal); F31.9 Bipolar disorder, unspecified; E03.9 Hypothyroidism, unspecified; E10.9 Type 1 diabetes mellitus without complications; E78.00 Pure hypercholesterolemia, unspecified; I10 Essential (primary) hypertension; F41.9 Anxiety disorder, unspecified; J45.909 Unspecified asthma, uncomplicated; Z79.4 Long term (current) use of insulin; Z88.6 Allergy status to analgesic agent; Z91.010 Allergy to peanuts; Z88.0 Allergy status to penicillin; Z91.013 Allergy to seafood

== ENCOUNTER 2016-10-18 07:08 | Emergency (ER) | payer MEDICAID, MEDICARE ==
[2016-10-18 07:09] VITALS: BMI 21.5
[2016-10-18 07:23] VITALS: BP 128/79; PULSE 79; RESP 18; TEMP 98; O2SAT 98
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
== END 2016-10-18 07:40 | disposition left against medical advice (07) ==
LOC: H.ER 07:08
DX: S39.012A Strain of muscle, fascia and tendon of lower back, initial encounter (principal)

== ENCOUNTER 2016-10-18 10:15 | Emergency (ER) | payer MEDICAID, MEDICARE ==
[2016-10-18 10:15] VITALS: BMI 21.5
[2016-10-18 10:21] VITALS: O2SAT 98
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
[2016-10-18 10:42] VITALS: BP 130/72; PULSE 79; RESP 19; TEMP 98.2
== END 2016-10-18 11:41 | disposition home or self-care (01) ==
LOC: H.ER 10:15
DX: M25.561 Pain in right knee (principal)

== ENCOUNTER 2016-10-18 13:20 | Observation (INO) | payer MEDICAID, MEDICARE ==
[2016-10-18 13:24] VITALS: BMI 21.5
--- NOTE | 2016-10-18 14:46 | ED PDOC ---
HPI: Psych/Substance Abuse Chief Complaint (Nursing): Medical Clearance Past Medical History Vital Signs: Last Vital Signs Temp Pulse 110 H 10/18/16 13:57 Resp 20 10/18/16 13:57 BP 146/100 H 10/18/16 13:57 Pulse Ox - Medical History PMH: Anxiety, Asthma, Bipolar Disorder, Depression, HTN, Hypercholesterolemia, Hyperthyroidism, Hypothyroidism, Seizures Denies: Hepatitis, HIV, Chronic Kidney Disease, Schizophrenia, Sexually Transmitted Disease - Family History Family History: States: Unknown Family Hx - Home Medications Home Medications: Ambulatory Orders Medication Instructions Recorded Divalproex [Depakote ER(ONCE 500 mg PO HS #30 ter 10/13/16 DAILY)] Risperidone [Risperdal] 3 mg PO HS #30 tablet 10/13/16 - Allergies Allergies/Adverse Reactions: Allergies Allergy/AdvReac Type Severity Reaction Status Date / Time amphetamine [From Adderall] Allergy RASH Verified 10/18/16 13:39 dextroamphetamine Allergy RASH Verified 10/18/16 13:39 [From Adderall] ibuprofen [From Motrin] Allergy RASH Verified 10/18/16 13:39 peanut Allergy RASH Verified 10/18/16 13:39 Penicillins Allergy RASH Verified 10/18/16 13:39 shellfish derived Allergy RASH Verified 10/18/16 13:39
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
[2016-10-18 14:58] LABS: BASO # 0.1 K/uL (0.0-0.2); BASO % 0.5 % (0.0-2.0); EOS # 0.2 K/uL (0.0-0.7); EOS % 1.5 % (0.0-4.0); HEMOGLOBIN 14.7 g/dL (12.0-18.0); LYMPH # 2.6 K/uL (1.0-4.3); LYMPH % 21.2 % (20.0-40.0); MEAN CELL VOLUME 84.4 fl (80.0-94.0); MEAN CORPUSCULAR HEMOGLOBIN 28.6 pg (27.0-31.0); MEAN CORPUSCULAR HGB CONC 33.9 g/dL (33.0-37.0); MEAN PLATELET VOLUME 8.6 fl (7.2-11.7); MONO # 1.3 K/uL (0.0-0.8); MONO % 10.5 % (0.0-10.0); NEUT # 8.1 K/uL (1.8-7.0); NEUT % 66.3 % (50.0-75.0); NRBC % 0.1 % (0.0-0.0); RBC 5.12 Mil/uL (4.40-5.90); RED CELL DISTRIBUTION WIDTH 13.6 % (11.5-14.5); WHITE BLOOD COUNT 12.2 K/uL (4.8-10.8)
[2016-10-18 15:14] LABS: ALB/GLOB RATIO 1.1 (1.0-2.1); ALBUMIN 4.6 g/dL (3.5-5.0); ALT/SGPT 42 U/L (21-72); AST/SGOT 32 U/L (17-59); BLOOD UREA NITROGEN 10 mg/dl (9-20); CALCIUM 9.3 mg/dL (8.4-10.2); GFR AFRICAN-AMERICAN > 60; GFR NON-AFRICAN AMERICAN > 60
[2016-10-18 16:13] LABS: BARBITURATES, UR NEGATIVE (NEGATIVE); BENZODIAZEPINES, UR NEGATIVE (NEGATIVE); OPIATES, UR NEGATIVE (NEGATIVE); PHENCYCLIDINE, UR NEGATIVE (NEGATIVE)
[2016-10-18 16:55] VITALS: PULSE 90
[2016-10-18 21:21] VITALS: BP 112/68; RESP 16; TEMP 98.2; O2SAT 98
--- NOTE | 2016-10-19 08:36 | CARD ---
APPROVED REPORT EKG Measurement Heart [id number] <Conclusion> Sinus tachycardia Possible Left atrial enlargement Borderline ECG
== END 2016-10-18 22:34 | disposition home or self-care (01) ==
LOC: H.ER 13:20 → H.EROBSV 14:38
PROVIDERS: ADMIT Emergency Medicine; ATTEND Emergency Medicine
DX: F20.9 Schizophrenia, unspecified (principal); E03.9 Hypothyroidism, unspecified; E78.00 Pure hypercholesterolemia, unspecified; F31.9 Bipolar disorder, unspecified; I10 Essential (primary) hypertension; J45.909 Unspecified asthma, uncomplicated; E05.90 Thyrotoxicosis, unspecified without thyrotoxic crisis or storm; F32.9 Major depressive disorder, single episode, unspecified; F41.9 Anxiety disorder, unspecified; R56.9 Unspecified convulsions; F79 Unspecified intellectual disabilities; Z79.899 Other long term (current) drug therapy; F19.959 Other psychoactive substance use, unspecified with psychoactive substance-induced psychotic disorder, unspecified; F17.210 Nicotine dependence, cigarettes, uncomplicated

== ENCOUNTER 2016-10-19 01:49 | Emergency (ER) | payer MEDICAID, MEDICARE ==
[2016-10-19 01:50] VITALS: BMI 21.5
[2016-10-19 02:02] VITALS: TEMP 98
[2016-10-19 04:01] VITALS: BP 123/78; PULSE 114; RESP 16; O2SAT 98
--- NOTE | 2016-10-19 04:12 | ED PDOC ---
HPI: Psych/Substance Abuse Time Seen by Provider: 10/19/16 01:57 Chief Complaint (Nursing): Alcohol Ingestion Chief Complaint (Provider): Alcohol Ingestion ED Caveat: Intoxicated History Per: Patient History/Exam Limitations: intoxication Current Symptoms Are (Timing): Still Present Suicide/Self Injury Attempted (Context): None Modifying Factor(s): Alcohol Additional Complaint(s): 26 year old male brought in by EMS presents to ED due to alcohol intoxication and has a history of HTN, DM, asthma, and an extensive psychiatric history. Patient is well known to ED for multiple visits a day. PCP: JONATHAN Past Medical History Reviewed: Historical Data, Nursing Documentation, Vital Signs Vital Signs: Last Vital Signs Temp 98 F 10/19/16 04:01 Pulse 114 H 10/19/16 04:01 Resp 16 10/19/16 04:01 BP 123/78 10/19/16 04:01 Pulse Ox 98 10/19/16 04:01 - Medical History PMH: Anxiety, Asthma, Bipolar Disorder, Depression, HTN, Hypercholesterolemia, Hyperthyroidism, Hypothyroidism, Seizures Denies: Hepatitis, HIV, Chronic Kidney Disease, Schizophrenia, Sexually Transmitted Disease - Family History Family History: States: Unknown Family Hx - Living Arrangements Living Arrangements: Other (Undomiciled) - Social History Alcohol: > 2 Drinks/Day - Home Medications Home Medications: Ambulatory Orders Medication Instructions Recorded Divalproex [Depakote ER(ONCE 500 mg PO HS #30 ter 10/13/16 DAILY)] Risperidone [Risperdal] 3 mg PO HS #30 tablet 10/13/16 - Allergies Allergies/Adverse Reactions: Allergies Allergy/AdvReac Type Severity Reaction Status Date / Time amphetamine [From Adderall] Allergy RASH Verified 10/18/16 13:39 dextroamphetamine Allergy RASH Verified 10/18/16 13:39 [From Adderall] ibuprofen [From Motrin] Allergy RASH Verified 10/18/16 13:39 peanut Allergy RASH Verified 10/18/16 13:39 Penicillins Allergy RASH Verified 10/18/16 13:39 shellfish derived Allergy RASH Verified 10/18/16 13:39 Review of Systems Review Of Systems: ROS cannot be obtained secondary to pt's inabilty to answer questions. (Due to patient's intoxicated state) Physical Exam - Reviewed Nursing Documentation Reviewed: Yes Vital Signs Reviewed: Yes - Physical Exam Appears: Positive for: No Acute Distress Skin: Positive for: Normal Color, Warm, Dry ENT: Positive for: Normal ENT Inspection Neck: Positive for: Normal, Painless ROM, Supple Cardiovascular/Chest: Positive for: Regular Rate, Rhythm. Negative for: Murmur Respiratory: Positive for: Normal Breath Sounds. Negative for: Respiratory Distress Gastrointestinal/Abdominal: Positive for: Normal Exam, Soft. Negative for: Tenderness Back: Positive for: Normal Inspection Extremity: Positive for: Normal ROM. Negative for: Deformity Neurologic/Psych: Negative for: Motor/Sensory Deficits - ECG O2 Sat by Pulse Oximetry: 98 (RA) Pulse Ox Interpretation: Normal Medical Decision Making Medical Decision Makin Initial impression: alcohol intoxication 0400 Patient is awake and acting as baseline. Patient is stable for discharge. Scribe Attestation: Documented by Nicky Fields acting as a scribe for Silvino Todd MD. Scribe Attestation: All medical record entries made by the Scribe were at my direction and personally dictated by me. I have reviewed the chart and agree that the record accurately reflects my personal performance of the history, physical exam, medical decision making, and the department course for this patient. I have also personally directed, reviewed, and agree with the discharge instructions and disposition. Disposition - Clinical Impression Clinical Impression: Alcohol abuse, Bipolar 1 disorder - Patient ED Disposition Is Patient to be Admitted: No - Disposition Disposition: Routine/Home Disposition Time: 04:06 Condition: STABLE
== END 2016-10-19 04:15 | disposition home or self-care (01) ==
LOC: H.ER 01:49
DX: F10.129 Alcohol abuse with intoxication, unspecified (principal); F31.9 Bipolar disorder, unspecified; E11.9 Type 2 diabetes mellitus without complications; E03.9 Hypothyroidism, unspecified; E05.90 Thyrotoxicosis, unspecified without thyrotoxic crisis or storm; E78.00 Pure hypercholesterolemia, unspecified; F41.9 Anxiety disorder, unspecified; I10 Essential (primary) hypertension; Z88.0 Allergy status to penicillin

== ENCOUNTER 2016-10-19 08:04 | Observation (INO) | payer MEDICAID, MEDICARE ==
[2016-10-19 08:05] VITALS: BMI 21.5
[2016-10-19 08:10] VITALS: BP 138/91; PULSE 108; RESP 20; TEMP 98.1; O2SAT 93
--- NOTE | 2016-10-19 09:09 | ED PDOC ---
HPI: General Adult Time Seen by Provider: 10/19/16 08:08 Chief Complaint (Nursing): Substance Abuse Chief Complaint (Provider): Found in [facility] per as usual History Per: Patient History/Exam Limitations: no limitations Have you had recent travel within the past 21 days to any of the following countries: [place], [place], [place] or [place]?: No Additional Complaint(s): Vaibhav Granados, a 26 year old male, who is well known to the ED for substance abuse is brought in because he was found in [facility]. The patient is sleeping comfortable in ED. Postive for gag. Past Medical History Reviewed: Historical Data, Nursing Documentation, Vital Signs Vital Signs: Last Vital Signs Temp 98.1 F 10/19/16 08:09 Pulse 108 H 10/19/16 08:09 Resp 20 10/19/16 08:09 BP 138/91 H 10/19/16 08:09 Pulse Ox 93 L 10/19/16 12:49 - Medical History PMH: Anxiety, Asthma, Bipolar Disorder, Depression, HTN, Hypercholesterolemia, Hyperthyroidism, Hypothyroidism, Seizures Denies: Hepatitis, HIV, Chronic Kidney Disease, Schizophrenia, Sexually Transmitted Disease - Family History Family History: States: Unknown Family Hx - Home Medications Home Medications: Ambulatory Orders Medication Instructions Recorded Divalproex [Depakote ER(ONCE 500 mg PO HS #30 ter 10/13/16 DAILY)] Risperidone [Risperdal] 3 mg PO HS #30 tablet 10/13/16 - Allergies Allergies/Adverse Reactions: Allergies Allergy/AdvReac Type Severity Reaction Status Date / Time amphetamine [From Adderall] Allergy RASH Verified 10/19/16 08:12 dextroamphetamine Allergy RASH Verified 10/19/16 08:12 [From Adderall] ibuprofen [From Motrin] Allergy RASH Verified 10/19/16 08:12 peanut Allergy RASH Verified 10/19/16 08:12 Penicillins Allergy RASH Verified 10/19/16 08:12 shellfish derived Allergy RASH Verified 10/19/16 08:12 Review of Systems ROS Statement: Except As Marked, All Systems Reviewed And Found Negative Constitutional: Negative for: Fever, Chills Physical Exam - Reviewed Nursing Documentation Reviewed: Yes Vital Signs Reviewed: Yes - Physical Exam Appears: Positive for: Non-toxic, No Acute Distress Head Exam: Positive for: ATRAUMATIC, NORMAL INSPECTION, NORMOCEPHALIC Skin: Positive for: Normal Color, Warm, Dry Eye Exam: Positive for: Normal appearance, EOMI, PERRL ENT: Positive for: Normal ENT Inspection Neck: Positive for: Normal, Painless ROM, Supple Cardiovascular/Chest: Positive for: Regular Rate, Rhythm, Chest Non Tender. Negative for: Tachycardia Respiratory: Positive for: Normal Breath Sounds. Negative for: Wheezing, Respiratory Distress Gastrointestinal/Abdominal: Positive for: Normal Exam, Bowel Sounds, Soft. Negative for: Tenderness, Guarding, Rebound Back: Positive for: Normal Inspection Extremity: Positive for: Normal ROM. Negative for: Tenderness, Pedal Edema, Deformity, Swelling Neurologic/Psych: Positive for: Alert, Oriented, Gait. Negative for: Motor/ Sensory Deficits - ECG O2 Sat by Pulse Oximetry: 93 (RA) Pulse Ox Interpretation: Normal Medical Decision Making Medical Decision Makin Initial Plan: 26 year old male brought in because he was found in [place]' s Initial Plan: * Alcohol serum * Drug Screen * ED obs * Reevaluation 08 ED observation Scribe Attestation Documented by Margoth Barnes acting as a scribe for Beverley Nava MD. Provider Attestation All medical record entries made by the Scribe were at my direction and personally dictated by me. I have reviewed the chart and agree that the record accurately reflects my personal performance of the history, physical exam, medical decision making, and the department course for this patient. I have also personally directed, reviewed, and agree with the discharge instructions and disposition. ED OBSERVATION Date of observation admission: 10/19/16 Time of observation admission: 08:16 - Progress Note Progress Note: 10/19/16 9:33 Patient is attempting to walk out of ED, he was brought back to the room and is redirectable. 10/19/16 12:09 Patient is resting comfortably 10/19/16 12:30 Patient is A&O x3, calm and cooperative. Patient will be discharged. Scribe Attestation Documented by Margoth Barnes acting as a scribe for Beverley Nava MD. Provider Attestation All medical record entries made by the Scribe were at my direction and personally dictated by me. I have reviewed the chart and agree that the record accurately reflects my personal performance of the history, physical exam, medical decision making, and the department course for this patient. I have also personally directed, reviewed, and agree with the discharge instructions and disposition. Disposition - Clinical Impression Clinical Impression: Marijuana abuse - Patient ED Disposition Is Patient to be Admitted: No - Disposition Disposition: Routine/Home Disposition Time: 12:30 Condition: STABLE
[2016-10-19 10:32] LABS: BARBITURATES, UR NEGATIVE (NEGATIVE); BENZODIAZEPINES, UR NEGATIVE (NEGATIVE); OPIATES, UR NEGATIVE (NEGATIVE); PHENCYCLIDINE, UR NEGATIVE (NEGATIVE)
== END 2016-10-19 12:34 | disposition home or self-care (01) ==
LOC: H.ER 08:04 → H.EROBSV 08:16
PROVIDERS: ADMIT Emergency Medicine; ATTEND Emergency Medicine
DX: F12.129 Cannabis abuse with intoxication, unspecified (principal); F31.9 Bipolar disorder, unspecified; F41.9 Anxiety disorder, unspecified; E03.9 Hypothyroidism, unspecified; I10 Essential (primary) hypertension; J45.909 Unspecified asthma, uncomplicated; E78.00 Pure hypercholesterolemia, unspecified; Z88.6 Allergy status to analgesic agent; Z91.010 Allergy to peanuts; Z88.0 Allergy status to penicillin; Z91.013 Allergy to seafood

== ENCOUNTER 2016-10-19 20:15 | Emergency (ER) | payer MEDICAID, MEDICARE ==
[2016-10-19 20:15] VITALS: BMI 21.5
[2016-10-19 20:22] VITALS: BP 152/86; PULSE 86; RESP 18; TEMP 97.8; O2SAT 99
== END 2016-10-19 20:35 | disposition left against medical advice (07) ==
LOC: H.ER 20:15
DX: Z02.89 Encounter for other administrative examinations (principal)

== ENCOUNTER 2016-10-19 22:24 | Observation (INO) | payer MEDICAID, MEDICARE ==
[2016-10-19 22:25] VITALS: BMI 21.5
--- NOTE | 2016-10-19 22:46 | ED PDOC ---
HPI: General Adult Time Seen by Provider: 10/19/16 22:42 Chief Complaint (Nursing): Medical Clearance History Per: EMS (Brought by EMS after refusing to leave [place]. When asked to leave, pt through himself to ground. No c/o offered.) Past Medical History Vital Signs: Last Vital Signs Temp 97.9 F 10/19/16 22:27 Pulse 80 10/19/16 22:27 Resp 18 10/19/16 22:27 BP 130/78 10/19/16 22:27 Pulse Ox 100 10/19/16 22:27 - Medical History PMH: Anxiety, Asthma, Bipolar Disorder, Depression, HTN, Hypercholesterolemia, Hyperthyroidism, Hypothyroidism, Seizures Denies: Hepatitis, HIV, Chronic Kidney Disease, Schizophrenia, Sexually Transmitted Disease - Family History Family History: States: Unknown Family Hx - Home Medications Home Medications: Ambulatory Orders Medication Instructions Recorded Divalproex [Depakote ER(ONCE 500 mg PO HS #30 ter 10/13/16 DAILY)] Risperidone [Risperdal] 3 mg PO HS #30 tablet 10/13/16 - Allergies Allergies/Adverse Reactions: Allergies Allergy/AdvReac Type Severity Reaction Status Date / Time amphetamine [From Adderall] Allergy RASH Verified 10/19/16 08:12 dextroamphetamine Allergy RASH Verified 10/19/16 08:12 [From Adderall] ibuprofen [From Motrin] Allergy RASH Verified 10/19/16 08:12 peanut Allergy RASH Verified 10/19/16 08:12 Penicillins Allergy RASH Verified 10/19/16 08:12 shellfish derived Allergy RASH Verified 10/19/16 08:12 Review of Systems Review Of Systems: ROS cannot be obtained secondary to pt's inabilty to answer questions. Physical Exam - Physical Exam Appears: Positive for: Non-toxic, No Acute Distress Cardiovascular/Chest: Positive for: Regular Rate, Rhythm Respiratory: Positive for: Normal Breath Sounds Neurologic/Psych: Negative for: Motor/Sensory Deficits - ECG O2 Sat by Pulse Oximetry: 100 Disposition - Clinical Impression Clinical Impression: Bipolar disorder - Patient ED Disposition Is Patient to be Admitted: No - Disposition Referrals: [facility] [Outside] Disposition: Routine/Home Disposition Time: 22:45 Condition: FAIR Instructions: Bipolar Disorder (ED)
--- NOTE | 2016-10-20 00:13 | ED PDOC ---
- Laboratory Results Result Diagrams: 10/20/16 02:10 10/20/16 02:10 - ECG O2 Sat by Pulse Oximetry: 100 - Critical Care Total Time (In Min): 30 Medical Decision Making Medical Decision Makin Patient signed over to me from Dr. Salazar pending crisis eval. 0014 * EtOH serum * Labs * UDrug screen * Crisis eval * 1:1 OBS * ADMIT ED OBS * UA All further documentation will take place in the ED OBS section of the note. Scribe Attestation: Documented by Nicky Fields acting as a scribe for Alfredo Michel MD. Scribe Attestation: All medical record entries made by the Scribe were at my direction and personally dictated by me. I have reviewed the chart and agree that the record accurately reflects my personal performance of the history, physical exam, medical decision making, and the department course for this patient. I have also personally directed, reviewed, and agree with the discharge instructions and disposition. Disposition - Clinical Impression Clinical Impression: Bipolar disorder, Psychosis - POA Present On Arrival: None - Disposition Disposition: Transfer of Care Disposition Time: 07:00 Condition: FAIR Patient Signed Over To: Charlie Armstrong Handoff Comments: Pending [facility] evaluation ED OBSERVATION Date of observation admission: 10/20/16 Time of observation admission: 00:12 - Observation admission statement Patient is being placed in observation because:: Pending work up and crisis eval - Goals of Observation Goals of observation are:: Lab results and diagnosis - Progress Note Progress Note: 10/20/16 01:16 Patient's vitals are stable. 10/20/16 03:01 Patient's vitals are stable. Patient resting comfortably. 10/20/16 04:05 Patient's condition is stable. Resting comfortably. 10/20/16 05:30 Patient's condition is stable. Resting comfortably. 10/20/16 06:43 Patient's condition is stable. Resting comfortably.
[2016-10-20 02:19] LABS: BASO # 0.1 K/uL (0.0-0.2); BASO % 0.6 % (0.0-2.0); EOS # 0.2 K/uL (0.0-0.7); EOS % 1.9 % (0.0-4.0); HEMOGLOBIN 14.1 g/dL (12.0-18.0); LYMPH # 2.6 K/uL (1.0-4.3); LYMPH % 21.1 % (20.0-40.0); MEAN CELL VOLUME 85.2 fl (80.0-94.0); MEAN CORPUSCULAR HEMOGLOBIN 27.6 pg (27.0-31.0); MEAN CORPUSCULAR HGB CONC 32.5 g/dL (33.0-37.0); MONO % 8.1 % (0.0-10.0); NEUT # 8.4 K/uL (1.8-7.0); NEUT % 68.3 % (50.0-75.0); RBC 5.09 Mil/uL (4.40-5.90); RED CELL DISTRIBUTION WIDTH 13.8 % (11.5-14.5); WHITE BLOOD COUNT 12.4 K/uL (4.8-10.8)
[2016-10-20 02:38] LABS: ALB/GLOB RATIO 1.1 (1.0-2.1); ALBUMIN 4.4 g/dL (3.5-5.0); ALT/SGPT 45 U/L (21-72); AST/SGOT 32 U/L (17-59); BLOOD UREA NITROGEN 14 mg/dl (9-20); CALCIUM 9.2 mg/dL (8.4-10.2); GFR AFRICAN-AMERICAN > 60; GFR NON-AFRICAN AMERICAN > 60
--- NOTE | 2016-10-20 07:27 | ED PDOC ---
- Laboratory Results Result Diagrams: 10/20/16 02:10 10/20/16 02:10 - ECG O2 Sat by Pulse Oximetry: 100 - Progress ED Course And Treament: Assumed care from Dr Michel. Pt has been medically cleared. Pending [facility] screen. Medical Decision Making Medical Decision Making: Reviewed recent EKG and CXR on the chart. Vital signs are stable. Labs reviewed. In my opinion there are no current acute medical conditions that contraindicate the placement of this patient in a psychiatric unit. Disposition - Clinical Impression Clinical Impression: Bipolar disorder - POA Present On Arrival: None - Disposition Disposition: Transfer of Care Disposition Time: 15:00 Condition: FAIR Patient Signed Over To: Fredy Fisher Handoff Comments: pending [facility] screen.
[2016-10-20 07:41] LABS: BARBITURATES, UR NEGATIVE (NEGATIVE); BENZODIAZEPINES, UR NEGATIVE (NEGATIVE); OPIATES, UR NEGATIVE (NEGATIVE); PHENCYCLIDINE, UR NEGATIVE (NEGATIVE)
[2016-10-20 07:44] LABS: URINE BILIRUBIN NEGATIVE (NEGATIVE); URINE BLOOD NEGATIVE (NEGATIVE); URINE CLARITY CLEAR (Clear); URINE COLOR YELLOW (YELLOW); URINE GLUCOSE (UA) NEG (Normal); URINE LEUKOCYTE ESTERASE NEG Leu/uL (Negative); URINE NITRATE NEGATIVE (NEGATIVE); URINE PROTEIN 100 mg/dL (NEGATIVE); URINE UROBILINOGEN 0.2-1.0 mg/dL (0.2-1.0)
[2016-10-20 14:29] VITALS: O2SAT 100
[2016-10-20] MEDS ORDERED: Potassium Chloride 20 mEq ER Tab PO ONE ×2 (14:30→19:37)
--- NOTE | 2016-10-20 15:02 | ED PDOC ---
- Laboratory Results Result Diagrams: 10/20/16 02:10 10/20/16 02:10 - ECG O2 Sat by Pulse Oximetry: 100 (RA) Pulse Ox Interpretation: Normal Medical Decision Making Medical Decision Making: Receiving Sign Out: Patient signed out to me by Dr. Armstrong, pending [facility] screen. Scribe Attestation: Documented by Yolie Ayala acting as a scribe for Fredy Fisher MD. Scribe Attestation: All medical record entries made by the Scribe were at my direction and personally dictated by me. I have reviewed the chart and agree that the record accurately reflects my personal performance of the history, physical exam, medical decision making, and the department course for this patient. I have also personally directed, reviewed, and agree with the discharge instructions and disposition. Disposition - Clinical Impression Clinical Impression: Bipolar disorder, Psychosis - POA Present On Arrival: None - Disposition Disposition: Transfer of Care Disposition Time: 00:00 Condition: STABLE Patient Signed Over To: Alfredo Michel Handoff Comments: Pending [facility] bed Progress Note - Review of Symptoms Events since last encounter: time: 2026 pt seen and screened by [facility], accepted and currently awaiting bed.
[2016-10-20 19:36] VITALS: RESP 16; TEMP 97.9
--- NOTE | 2016-10-20 23:45 | ED PDOC ---
- Laboratory Results Result Diagrams: 10/20/16 02:10 10/20/16 02:10 - ECG O2 Sat by Pulse Oximetry: 100 (RA) Medical Decision Making Medical Decision Makin Patient signed out to provider from Dr. Fisher pending [facility] bed placement. 0224 Bed is now available at [facility]. Scribe Attestation: Documented by Nicky Fields acting as a scribe for Alfredo Michel MD. Scribe Attestation: All medical record entries made by the Scribe were at my direction and personally dictated by me. I have reviewed the chart and agree that the record accurately reflects my personal performance of the history, physical exam, medical decision making, and the department course for this patient. I have also personally directed, reviewed, and agree with the discharge instructions and disposition. Disposition - Clinical Impression Clinical Impression: Bipolar disorder, Psychosis - POA Present On Arrival: None - Disposition Disposition: Other Institution ([facility]) Disposition Time: 02:26 Condition: FAIR
[2016-10-21 02:12] VITALS: BP 126/77; PULSE 76
== END 2016-10-21 02:58 ==
LOC: H.ER 22:24 → H.EROBSV 10-20 00:14
PROVIDERS: ADMIT Emergency Medicine; ATTEND Emergency Medicine
DX: F31.9 Bipolar disorder, unspecified (principal); F29 Unspecified psychosis not due to a substance or known physiological condition; E03.9 Hypothyroidism, unspecified; E78.00 Pure hypercholesterolemia, unspecified; I10 Essential (primary) hypertension; F32.9 Major depressive disorder, single episode, unspecified; J45.909 Unspecified asthma, uncomplicated; E05.90 Thyrotoxicosis, unspecified without thyrotoxic crisis or storm; F41.9 Anxiety disorder, unspecified; R56.9 Unspecified convulsions